=== PATIENT | female | born 1970 | race Caucasian/White ===

== ENCOUNTER 2016-11-06 07:08 | Day surgery (SDC) | payer BC ==
[2016-11-04 09:08] VITALS: BMI 34.7
[~2016-11-06 07:08] MED LIST: LACTATED RINGERS 1,000 ML IV SCH
[2016-11-06 07:59] VITALS: RESP 18; TEMP 97.6
[2016-11-06] MEDS ORDERED: LIDOCAINE 1% INJ 10MG/ML (20 ML MDV) ONE (08:22)
[2016-11-06] MEDS ORDERED: PROPOFOL 10 MG/ML 20 ML VIAL IV ONE (08:22)
--- NOTE | 2016-11-06 08:33 | P.PCN ---
Date of Procedure: 11/06/16 Procedure(s) Performed: BRIEF HISTORY: Patient is a 46-year-old, pleasant, white female, scheduled for an upper endoscopy as part of evaluation of long-standing history of gastroesophageal reflux symptoms of almost 13 years duration. She has been on Prilosec 20 mg daily for the last 1 year and feeling much better. Occasionally has breakthrough heartburn nocturnally. She is scheduled for an upper endoscopy to rule out compensated reflux disease. PROCEDURE PERFORMED: Esophagogastroduodenoscopy with biopsy. PREOPERATIVE DIAGNOSIS: Long-standing history of GERD. IV sedation per anesthesia. PROCEDURE: After informed consent was obtained, the patient was brought into the endoscopy unit. IV conscious sedation was administered by Anesthesia under continuous monitoring. Initially the Olympus GIF-140 video endoscope was inserted into the mouth. Esophagus intubated without any difficulty. It was gradually advanced into the stomach and duodenum and carefully examined. The bulb and the second part of the duodenum appeared normal. The scope at this time was withdrawn to the stomach, adequately insufflated with air, and upon careful examination, mucosa of the antrum, appeared normal. In the body the stomach there are multiple small gastric polyps noted which were biopsied. The body, cardia and the fundus appeared normal. The scope was then withdrawn into the esophagus. The GE junction was located at 39 cm from the incisors. Small hiatal hernia noted. The esophagus appeared normal. There were no erosions or ulcerations seen. There was a small 2-3 mm polyp at the GE junction which was biopsied and the patient tolerated the procedure well. IMPRESSION: 1. Small hiatal hernia but no evidence of esophagitis or Esparza's esophagus. 2. 2-3 mm GE junction polyp status post biopsy. 3. Multiple small gastric polyps RECOMMENDATIONS: The findings of this examination were discussed with the patient as well as a family. She was advised to follow with the biopsy results. She can continue with omeprazole 20 mg daily half hour before dinnertime and follow antireflux measures.
[2016-11-06 08:54] VITALS: BP 123/65; PULSE 77
--- NOTE | 2016-11-14 09:46 | CDI ---
Dr. Vidhi Gary, Due to new rules about charging for conscious sedation, we noted conflicting information about type of sedation between your procedure note (stating IV CONSCIOUS sedation under Procedure heading) and Anesthesia Record which states Unconscious sedation. Because the word CONSCIOUS now has a different meaning for billing, we need you to stop dictating conscious sedation when Anesthesia is involved on your cases. FOR THIS CASE, WE NEED YOU TO DO ADDENDUM TO YOUR PROCED NOTE THAT SAYS "Unconscious" SEDATION instead of CONSCIOUS SEDATION. Thank you christine much for your assistance with this important billing compliance documentation issue. Sincerely, Ovidio Thrasher--associate professor of criminal justice Maria Dolores Sánchez MBA, FIELD MARKETING REPRESENTATIVE, [facility] Deputy Clerk, Kacey Porter [phone] [facility] SYSTEM[facility]
--- NOTE | 2016-12-25 11:56 | OP ---
ADDENDUM: DATE OF SERVICE: 11/06/2016 SURGEON: CHANO MANNING DO CELLULOID TRIMMER: PREOPERATIVE DIAGNOSIS: POSTOPERATIVE DIAGNOSIS: OPERATION: ANESTHESIA: ESTIMATED BLOOD LOSS: SPECIMENS REMOVED: COMPLICATIONS: OPERATIVE FINDINGS: DESCRIPTION OF PROCEDURE: General anesthesia was utilized instead of IV conscious sedation.
== END 2016-11-06 09:20 | disposition home or self-care (01) ==
LOC: ORWHC2ENDO 07:08
PROVIDERS: ATTEND Internal Medicine Gastroenterology
DX: K21.9 Gastro-esophageal reflux disease without esophagitis (principal); K31.7 Polyp of stomach and duodenum; K29.70 Gastritis, unspecified, without bleeding; K20.0 Eosinophilic esophagitis; K44.9 Diaphragmatic hernia without obstruction or gangrene; E07.9 Disorder of thyroid, unspecified; Z88.8 Allergy status to other drugs, medicaments and biological substances; Z79.3 Long term (current) use of hormonal contraceptives; Z79.899 Other long term (current) drug therapy
CPT/HCPCS: 81025; 88305; 88342; 43239; J2001; J2704

== ENCOUNTER → 2018-09-23 | Outpatient (CLI) | payer BC ==
--- NOTE | 2018-09-24 11:04 | MM ---
Reason for exam: screening (asymptomatic). Last mammogram was performed 8 years and 10 months ago. History: Took hormonal contraceptives for 7 years beginning at age 21. Physical Findings: A clinical breast exam by your physician is recommended on an annual basis and results should be correlated with mammographic findings. MG 3D Screening Mammo W/Cad Bilateral CC and MLO view(s) were taken. Prior study comparison: September 19, 2016, mammogram, performed at [facility]. November 06, 2009, bilateral digital screening mammogram. The breast tissue is heterogeneously dense. This may lower the sensitivity of mammography. No significant changes when compared with prior studies. ASSESSMENT: Benign, BI-RAD 2 RECOMMENDATION: Routine screening mammogram of both breasts in 1 year.
== END | disposition home or self-care (01) ==
LOC: RADMAMWWP 16:31
PROVIDERS: ATTEND Family Medicine
DX: Z12.31 Encounter for screening mammogram for malignant neoplasm of breast (principal)
CPT/HCPCS: 77063; 77067

== ENCOUNTER → 2022-01-23 | Outpatient (CLI) | payer BC ==
--- NOTE | 2022-01-24 18:28 | MM ---
Reason for Exam: Screening (asymptomatic). Last mammogram was performed 3 year(s) and 4 month(s) ago. Patient History: Menarche at age 14. First Full-Term at age 31. Late child-bearing (after 31). Hormonal Contraceptives for 7 years from age 21 until age 28. Risk Values: Jana 5 year model risk: 1.3%. NCI Lifetime model risk: 12.1%. Prior Study Comparison: 11/06/2009 Bilateral Screening Mammogram, [facility]. 09/19/2016 Screening Mammogram, [facility]. 09/23/2018 Bilateral Screening Mammogram, [facility]. Tissue Density: The breast tissue is extremely dense which could obscure a lesion on mammography. Findings: Analyzed By CAD. Pattern is asymmetric but stable over the interval. Right breast appears larger than the left. No suspicious groups of microcalcifications, spiculated or lobular masses, architectural distortion or other secondary signs of malignancy are mammographically apparent. Overall Assessment: Benign, BI-RAD 2 Management: Screening Mammogram of both breasts in 1 year. A negative mammogram report should not preclude additional follow up of suspicious palpable abnormalities. Patient should continue monthly self breast exam. A clinical breast exam by your physician is recommended on an annual basis and results should be correlated with mammographic findings. Electronically signed and approved by: Tadeo Gore D.O. Radiologis
== END | disposition home or self-care (01) ==
LOC: RADMAMWWP 08:07
PROVIDERS: ATTEND Family Medicine
DX: Z12.31 Encounter for screening mammogram for malignant neoplasm of breast (principal)
CPT/HCPCS: 77063; 77067

== ENCOUNTER 2022-02-27 06:34 | Day surgery (SDC) | payer BC ==
[2022-02-25 11:51] VITALS: BMI 39.1
[2022-02-27 07:25] VITALS: RESP 16; TEMP 98.6
[2022-02-27] MEDS ORDERED: PROPOFOL 10 MG/ML 20 ML VIAL IV ONE (07:50)
[2022-02-27] MEDS ORDERED: LIDOCAINE 2% INJ 20 MG/ML (2 ML VIAL) ONE (07:50)
--- NOTE | 2022-02-27 08:15 | P.PCN ---
Date of Procedure: 02/27/22 Procedure(s) Performed: Brief history: Patient is a pleasant 51-year-old white female scheduled for an elective upper endoscopy as well as colonoscopy as a part of evaluation of long-standing history of GERD and the for colon cancer Procedure performed: Esophagogastroduodenoscopy with biopsy Colonoscopy Preoperative diagnosis: Long-standing history of GERD Screening for colon cancer Anesthesia: MAC Procedure: After informed consent was obtained from the patient was brought into the endoscopy unit and IV sedation was administered by anesthesia under continuous monitoring. Initially upper endoscopy was done. The Olympus GF 160 video endoscope was inserted inserted into the mouth and esophagus intubated without any difficulty and was gradually advanced into the stomach and duodenum and carefully examined. The bulb and second part of the duodenum appeared normal. The scope was then withdrawn into the stomach adequately insufflated with air and upon careful examination the antrum had diffuse gastritis and biopsies were done from this area. The body, cardia and fundus appeared normal. the multiple gastric polyps noted in the proximal body the stomach and biopsies were done from this area. Moderate sessile hernia noted The scope was then withdrawn into the esophagus. The GE junction was located at 35 cm to the incisors. It appeared regular with no erythema erosions or ulcerations. Rest of the esophagus appeared normal. Patient tolerated the procedure well. At this time the patient continued to remain sedation. Initial digital rectal examination was normal. Olympus CF 160 video colonoscope was then inserted into the rectum and gradually advanced to the cecum without any difficulty. Careful examination was performed as the scope was gradually being withdrawn. The prep was excellent. The cecum, ascending colon, transverse colon, descending colon, sigmoid colon and rectum appeared normal. Retroflexion was performed in the rectum and no lesions were noted. Patient tolerated the procedure well. Impression: 1. Upper endoscopy revealed diffuse antral gastritis, moderate size hiatal hernia and multiple gastric polyps status post biopsy 2. Colonoscopy was within normal limits with no evidence of colorectal neoplasia Recommendations: Findings of this examination were discussed with the patient as well as a family. She was advised to follow with the biopsy results. Continue omeprazole 20 mg daily and follow antireflux measures. Recommend repeat screening colonoscopy in 10 years.
[2022-02-27 08:36] VITALS: BP 119/77; PULSE 68
== END 2022-02-27 08:59 | disposition home or self-care (01) ==
LOC: ORWHC2ENDO 06:34
PROVIDERS: ATTEND Internal Medicine Gastroenterology
DX: Z12.11 Encounter for screening for malignant neoplasm of colon (principal); K29.50 Unspecified chronic gastritis without bleeding; K31.7 Polyp of stomach and duodenum; K44.9 Diaphragmatic hernia without obstruction or gangrene; K21.9 Gastro-esophageal reflux disease without esophagitis; J45.909 Unspecified asthma, uncomplicated; E07.9 Disorder of thyroid, unspecified; Z91.09 Other allergy status, other than to drugs and biological substances; Z79.890 Hormone replacement therapy; Z79.899 Other long term (current) drug therapy
CPT/HCPCS: 81025; 88305; 45378; 43239; J2704; J2001

== ENCOUNTER 2022-08-08 23:54 | Observation (INO) | payer BC ==
[2022-08-09] MEDS ORDERED: KETOROLAC 15 MG/ML 1 ML VIAL IVP STA (00:14)
[2022-08-09] MEDS ORDERED: SODIUM CHLORIDE 0.9% 1,000 ML IV STA (00:14)
[2022-08-09] MEDS ORDERED: ONDANSETRON 4 MG/2 ML VIAL IVP STA (00:14)
[2022-08-09] MEDS ORDERED: MORPHINE SULFATE 4 MG/ML SYRINGE IVP STA (00:15)
--- NOTE | 2022-08-09 00:16 | ED ---
Abdominal Pain HPI - General Chief Complaint: Abdominal Pain Stated Complaint: Abd Pain Time Seen by Provider: 08/09/22 00:14 Source: family, RN notes reviewed, old records reviewed Mode of arrival: wheelchair Limitations: no limitations - History of Present Illness Initial Comments: This is a 52-year-old female to the emergency department for evaluation patient Dese for evaluation regards to significant pain. Abdominal pain epigastric bowel pain patient does believe this is gallbladder related. No fevers. No travel show sick contacts no other severe complaints MD Complaint: abdominal pain (RUQ,epigastric) -: days(s) Location: diffuse, RUQ, epigastric Radiation: RUQ Migration to: RUQ Severity: moderate Severity scale (1-10): 4 Quality: stabbing, aching Consistency: intermittent, colicky Improves With: nothing Worsens With: nothing Associated Symptoms: nausea, vomiting Treatments Prior to Arrival: other (0) - Related Data Home Medications Medication Instructions Recorded Confirmed Levothyroxine Sodium [Synthroid] 88 mcg PO QAM 08/07/16 02/27/22 Omeprazole [PriLOSEC] 40 mg PO HS 02/25/22 02/27/22 Allergies Allergy/AdvReac Type Severity Reaction Status Date / Time aloe Allergy Rash/Hives Verified 08/09/22 00:00 Review of Systems ROS Statement: Those systems with pertinent positive or pertinent negative responses have been documented in the HPI. ROS Other: All systems not noted in ROS Statement are negative. Past Medical History Past Medical History: Asthma, GERD/Reflux, Skin Disorder, Thyroid Disorder Additional Past Medical History / Comment(s): Jose. Patient states diagnosed with Asthma in 1998, but has had no problems with it and thinks it's just allergies not Asthma. History of Any Multi-Drug Resistant Organisms: None Reported Past Surgical History: Orthopedic Surgery Additional Past Surgical History / Comment(s): Right hand procedure. Past Anesthesia/Blood Transfusion Reactions: No Reported Reaction Additional Past Anesthesia/Blood Transfusion Reaction / Comment(s): No hx blood transfusion. Past Psychological History: No Psychological Hx Reported Smoking Status: Never smoker Past Alcohol Use History: None Reported Past Drug Use History: None Reported - Past Family History Mother Family Medical History: No Reported History Father Family Medical History: No Reported History General Exam Limitations: no limitations General appearance: alert, in no apparent distress Head exam: Present: atraumatic, normocephalic, normal inspection Eye exam: Present: normal appearance, PERRL, EOMI. Absent: scleral icterus, conjunctival injection, periorbital swelling ENT exam: Present: normal exam, mucous membranes moist Neck exam: Present: normal inspection. Absent: tenderness, meningismus, lymphadenopathy Respiratory exam: Present: normal lung sounds bilaterally. Absent: respiratory distress, wheezes, rales, rhonchi, stridor Cardiovascular Exam: Present: regular rate, normal rhythm, normal heart sounds. Absent: systolic murmur, diastolic murmur, rubs, gallop, clicks GI/Abdominal exam: Present: soft, distended, tenderness, guarding (RUQ), normal bowel sounds. Absent: rebound, rigid Extremities exam: Present: normal inspection, full ROM, normal capillary refill. Absent: tenderness, pedal edema, joint swelling, calf tenderness Back exam: Present: normal inspection Neurological exam: Present: alert, oriented X3, CN II-XII intact Psychiatric exam: Present: normal affect, normal mood Skin exam: Present: warm, dry, intact, normal color. Absent: rash Course Vital Signs 08/08/22 23:58 Temperature 97.3 F L Pulse Rate 100 Respiratory 20 Rate Blood Pressure 138/99 O2 Sat by Pulse 100 Oximetry - Reevaluation(s) Reevaluation #1: 08/09/22 01:36 Medical record is reviewed Reevaluation #2: 08/09/22 01:36 patient symptoms are mildly improved, still w pain Reevaluation #3: 08/09/22 01:36 patient informed of results and questions answered - Consultations Consultation #1: spoke w Dr Víctor holguin for admission Medical Decision Making - Medical Decision Making 52 female to the emergency department for evaluation of abdominal pain. Patient here for epigastric right upper quadrant bowel pain positive colicystitis patient be admitted for surgical evaluation management - Lab Data Result diagrams: 08/09/22 00:14 08/09/22 00:14 Lab Results 08/09/22 08/09/22 Range/Units 00:14 00:14 WBC 15.9 H (3.8-10.6) k/uL RBC 4.24 (3.80-5.40) m/uL Hgb 12.6 (11.4-16.0) gm/dL Hct 37.7 (34.0-46.0) % MCV 88.9 (80.0-100.0) fL MCH 29.7 (25.0-35.0) pg MCHC 33.4 (31.0-37.0) g/dL RDW 13.9 (11.5-15.5) % Plt Count 391 (150-450) k/uL MPV 8.6 Neutrophils % 82 % Lymphocytes % 11 % Monocytes % 5 % Eosinophils % 0 % Basophils % 0 % Neutrophils # 13.0 H (1.3-7.7) k/uL Lymphocytes # 1.8 (1.0-4.8) k/uL Monocytes # 0.8 (0-1.0) k/uL Eosinophils # 0.0 (0-0.7) k/uL Basophils # 0.1 (0-0.2) k/uL Sodium 136 L (137-145) mmol/L Potassium 3.6 (3.5-5.1) mmol/L Chloride 100 (98-107) mmol/L Carbon Dioxide 24 (22-30) mmol/L Anion Gap 12 mmol/L BUN 12 (7-17) mg/dL Creatinine 1.25 H (0.52-1.04) mg/dL Est GFR (CKD-EPI)AfAm 58 (>60 ml/min/1.73 sqM) Est GFR (CKD-EPI)NonAf 50 (>60 ml/min/1.73 sqM) Glucose 181 H (74-99) mg/dL Calcium 8.9 (8.4-10.2) mg/dL Total Bilirubin 2.3 H (0.2-1.3) mg/dL AST 31 (14-36) U/L ALT 13 (4-34) U/L Alkaline Phosphatase 134 H (38-126) U/L Total Protein 7.6 (6.3-8.2) g/dL Albumin 4.1 (3.5-5.0) g/dL Amylase 39 (30-110) U/L Lipase 45 (23-300) U/L - Radiology Data Radiology results: report reviewed (US of GB Is Positive for Acute Cholecystitis), image reviewed Disposition Clinical Impression: Abdominal pain, Acute cholecystitis Disposition: ADMITTED IP TO THIS HOSP Condition: Good Is patient prescribed a controlled substance at d/c from ED?: No Referrals: Marion Haley DO [Primary Care Provider] - 1-2 days Time of Disposition: 01:35
[2022-08-09 00:51] LABS: Albumin 4.1 g/dL (3.5-5.0); Calcium 8.9 mg/dL (8.4-10.2); Potassium 3.6 mmol/L (3.5-5.1); Total Bilirubin 2.3 mg/dL (0.2-1.3); Total Protein 7.6 g/dL (6.3-8.2)
--- NOTE | 2022-08-09 00:56 | US ---
EXAMINATION TYPE: US gallbladder DATE OF EXAM: 08/09/2022 COMPARISON: NONE CLINICAL HISTORY: GB. Severe RUQ pain with n/v. TECHNIQUE: Multiple sonographic images of the right upper quadrant are obtained. FINDINGS: EXAM MEASUREMENTS: Liver Length: 15.9 cm Gallbladder Wall: 0.8 cm CBD: 0.6 cm Right Kidney: 9.6 x 4.7 x 4.6 cm Pancreas: Obscured by bowel gas Liver: Cystic area seen in the right lobe of liver measuring 6.9 x 8.3 x 3.8cm Gallbladder: Gallstones visualized. GB wall thickened with pericholecystic fluid. Evidence for sonographic Sanchez's sign: Yes CBD: Not well visualized Right Kidney: wnl IMPRESSION: 1. Findings consistent with acute cholecystitis. 2. Cholelithiasis. 3. Right hepatic lobe cyst.
[2022-08-09 01:11] LABS: Basophils # (A) 0.1 k/uL (0-0.2); Basophils % (A) 0 %; Eosinophils % (A) 0 %; HCT 37.7 % (34.0-46.0); HGB 12.6 gm/dL (11.4-16.0); Lymphocytes # (A) 1.8 k/uL (1.0-4.8); Lymphocytes % (A) 11 %; MCH 29.7 pg (25.0-35.0); MCHC 33.4 g/dL (31.0-37.0); MCV 88.9 fL (80.0-100.0); Mean Platelet Volume 8.6; Monocytes # (A) 0.8 k/uL (0-1.0); Monocytes % (A) 5 %; Neutrophils % (A) 82 %; Platelet Count 391 k/uL (150-450); RBC 4.24 m/uL (3.80-5.40); RDW 13.9 % (11.5-15.5); WBC 15.9 k/uL (3.8-10.6)
[2022-08-09] MEDS ORDERED: AMPICILLIN-SULBACTAM 3 GM in SODIUM CHLORIDE 0.9% 100 ML IVPB STA (01:29)
[2022-08-09] MEDS ORDERED: ONDANSETRON 4 MG/2 ML VIAL IVP PRN (01:34)
[2022-08-09] MEDS ORDERED: NALOXONE 0.4 MG/ML 1 ML VIAL IV PRN ×2 (01:34→12:35)
[2022-08-09 01:54] LABS: Partial Thromboplastin Time 27.7 sec (22.0-30.0); Prothrombin Time 10.3 sec (9.0-12.0)
[2022-08-09] MEDS: HYDROmorphone 1 MG/ML 1 ML SYRINGE IVP PRN ×2 (02:12→07:57)
[2022-08-09] MEDS: SODIUM CHLORIDE 0.9% 1,000 ML IV SCH ×3 (02:15→18:00)
--- NOTE | 2022-08-09 08:50 | P.GSHP ---
History of Present Illness H&P Date: 08/09/22 Chief Complaint: Right upper quadrant pain A 52-year-old female who's had history of right quadrant pain. Patient's workup in the emergency room found evidence of acute cholecystitis and cholelithiasis. Past Medical History Past Medical History: Asthma, GERD/Reflux, Skin Disorder, Thyroid Disorder Additional Past Medical History / Comment(s): Jose. Patient states diagnosed with Asthma in 1998, but has had no problems with it and thinks it's just allergies not Asthma. History of Any Multi-Drug Resistant Organisms: None Reported Past Surgical History: Orthopedic Surgery Additional Past Surgical History / Comment(s): Right hand procedure. Past Anesthesia/Blood Transfusion Reactions: No Reported Reaction Additional Past Anesthesia/Blood Transfusion Reaction / Comment(s): No hx blood transfusion. Past Psychological History: No Psychological Hx Reported Smoking Status: Never smoker Past Alcohol Use History: None Reported Past Drug Use History: None Reported - Past Family History Mother Family Medical History: No Reported History Father Family Medical History: No Reported History Medications and Allergies Home Medications Medication Instructions Recorded Confirmed Type Levothyroxine Sodium [Synthroid] 88 mcg PO QAM 08/07/16 08/09/22 History Omeprazole [PriLOSEC] 40 mg PO HS 02/25/22 08/09/22 History Ibuprofen [Motrin] 400 mg PO DAILY PRN 08/09/22 08/09/22 History Allergies Allergy/AdvReac Type Severity Reaction Status Date / Time aloe Allergy Rash/Hives Verified 08/09/22 07:51 Surgical - Exam Vital Signs Temp Pulse Resp BP Pulse Ox 97.3 F L 100 20 138/99 100 08/08/22 23:58 08/08/22 23:58 08/08/22 23:58 08/08/22 23:58 08/08/22 23:58 - General well developed, well nourished, no distress - Eyes PERRL - ENT normal pinna - Neck no masses - Respiratory normal expansion - Cardiovascular Rhythm: regular - Abdomen Tender right upper quadrant Abdomen: soft Results - Labs 08/09/22 00:14 08/09/22 00:14 Abnormal Lab Results - Last 24 Hours (Table) 08/09/22 08/09/22 Range/Units 00:14 00:14 WBC 15.9 H (3.8-10.6) k/uL Neutrophils # 13.0 H (1.3-7.7) k/uL Sodium 136 L (137-145) mmol/L Creatinine 1.25 H (0.52-1.04) mg/dL Glucose 181 H (74-99) mg/dL Total Bilirubin 2.3 H (0.2-1.3) mg/dL Alkaline Phosphatase 134 H (38-126) U/L Diabetes panel 08/09/22 Range/Units 00:14 Sodium 136 L (137-145) mmol/L Potassium 3.6 (3.5-5.1) mmol/L Chloride 100 (98-107) mmol/L Carbon Dioxide 24 (22-30) mmol/L BUN 12 (7-17) mg/dL Creatinine 1.25 H (0.52-1.04) mg/dL Glucose 181 H (74-99) mg/dL Calcium 8.9 (8.4-10.2) mg/dL AST 31 (14-36) U/L ALT 13 (4-34) U/L Alkaline Phosphatase 134 H (38-126) U/L Total Protein 7.6 (6.3-8.2) g/dL Albumin 4.1 (3.5-5.0) g/dL Calcium panel 08/09/22 Range/Units 00:14 Calcium 8.9 (8.4-10.2) mg/dL Albumin 4.1 (3.5-5.0) g/dL Pituitary panel 08/09/22 Range/Units 00:14 Sodium 136 L (137-145) mmol/L Potassium 3.6 (3.5-5.1) mmol/L Chloride 100 (98-107) mmol/L Carbon Dioxide 24 (22-30) mmol/L BUN 12 (7-17) mg/dL Creatinine 1.25 H (0.52-1.04) mg/dL Glucose 181 H (74-99) mg/dL Calcium 8.9 (8.4-10.2) mg/dL Adrenal panel 08/09/22 Range/Units 00:14 Sodium 136 L (137-145) mmol/L Potassium 3.6 (3.5-5.1) mmol/L Chloride 100 (98-107) mmol/L Carbon Dioxide 24 (22-30) mmol/L BUN 12 (7-17) mg/dL Creatinine 1.25 H (0.52-1.04) mg/dL Glucose 181 H (74-99) mg/dL Calcium 8.9 (8.4-10.2) mg/dL Total Bilirubin 2.3 H (0.2-1.3) mg/dL AST 31 (14-36) U/L ALT 13 (4-34) U/L Alkaline Phosphatase 134 H (38-126) U/L Total Protein 7.6 (6.3-8.2) g/dL Albumin 4.1 (3.5-5.0) g/dL Assessment and Plan Assessment: Right upper quadrant pain Acute cholecystitis We'll perform laparoscopic cholecystectomy
[2022-08-09] MEDS ORDERED: AMPICILLIN-SULBACTAM 3 GM in SODIUM CHLORIDE 0.9% 100 ML IVPB SCH (10:00)
[2022-08-09] MEDS ORDERED: LACTATED RINGERS 1,000 ML IV ONE ×2 (11:03→12:35)
[2022-08-09] MEDS ORDERED: HEPARIN SODIUM,PORCINE/PF 5,000 UNIT/0.5 ML SYRINGE SQ ONE (11:08)
[2022-08-09] MEDS ORDERED: HEPARIN SODIUM,PORCINE 5,000 UNIT/ML 1 ML VIAL SQ ONE (11:09)
[2022-08-09] MEDS ORDERED: ONDANSETRON 4 MG/2 ML VIAL IVP ONE (11:18)
[2022-08-09] MEDS ORDERED: DEXAMETHASONE SOD PHOSPHATE 4 MG/ML 1 ML VIAL IVP ONE (11:18)
[2022-08-09] MEDS ORDERED: PROPOFOL 10 MG/ML 20 ML VIAL IV ONE (11:24)
[2022-08-09] MEDS ORDERED: fentaNYL (PF) 50 MCG/ML 2 ML AMP ONE (11:24)
[2022-08-09] MEDS ORDERED: GLYCOPYRROLATE 0.2 MG/ML 2 ML VIAL ONE (11:24)
[2022-08-09] MEDS ORDERED: LIDOCAINE 2% INJ 20 MG/ML (2 ML VIAL) ONE (11:24)
[2022-08-09] MEDS ORDERED: MIDAZOLAM 2 MG/2 ML VIAL ONE (11:24)
[2022-08-09] MEDS ORDERED: ROCURONIUM 10 MG/ML (5 ML VIAL) IV ONE (11:24)
[2022-08-09] MEDS ORDERED: SUCCINYLCHOLINE CHLORIDE 200 MG/10 ML VIAL IV ONE (11:24)
[2022-08-09] MEDS ORDERED: NEOSTIGMINE 1 MG/ML 10 ML VIAL ONE (11:24)
[2022-08-09] MEDS ORDERED: BUPIVACAIN-EPI 0.25%-1:200,000 30 ML VIAL SQ ONE ×2 (11:25→11:38)
[2022-08-09] MEDS ORDERED: ACETAMINOPHEN TAB 325 MG TAB PO PRN (12:35)
[2022-08-09] MEDS ORDERED: HYDROcodone/APAP 5-325MG 1 EACH TAB PO PRN ×2 (12:35)
--- NOTE | 2022-08-09 12:35 | P.OP ---
Date of Procedure: 08/09/22 Preoperative Diagnosis: Cholecystitis Postoperative Diagnosis: Gangrenous cholecystitis Liver abscess Empyema gallbladder Cholelithiasis Procedure(s) Performed: Laparoscopic cholecystectomy Anesthesia: THERESE Surgeon: Samir Renee Estimated Blood Loss (ml): 200 Pathology: other Condition: stable Disposition: PACU Indications for Procedure: This is a 52-year-old female who's had a chronic history of right upper quadrant pain. Patient was seen ardha El evidence of cholelithiasis and was thought to be a 8 cm liver cyst. Operative Findings: Liver abscess Cholelithiasis Gangrenous cholecystitis Description of Procedure: The patient was placed on the operating table. The patient received a general endotracheal tube anesthesia. The patients abdomen was prepped and draped in the usual sterile fashion. Through an infraumbilical stab incision, the fascia of the anterior abdominal wall was grasped with a pair of Kochers and then the Veress needle was placed in the peritoneal cavity. Position of the Veress needle was confirmed with positive drop test. The abdomen was then insufflated. After adequate insufflation, the 10 mm trocar was placed in the peritoneal cavity. Following this the laparoscope was placed in the peritoneal cavity. The patient was placed in the head-up, right side up position and then a 5 mm trocar was placed in the right lateral and right subcostal position under direct visualization. A 8 mm trocar was placed in the epigastric position. There was a liver abscess seen on the right lobe liver just above the gallbladder dome. This was aspirated. It was located just below the capsule of the liver. The gallbladder was quite thickened. The gallbladder appeared to have patchy necrosis. The gallbladder wall was very thick. The gallbladder was aspirated prior to being grasped. The gallbladder was grasped in the fundus and infundibulum. Traction on the gallbladder was placed in the lateral and the cephalad positions. The triangle of Calot was visualized.. The cystic duct was bluntly dissected until the union of the cystic duct and common bile duct was seen. A critical view of safety was achieved. The cystic duct was then divided and sealed with the Harmonic scissors. A PDS Endoloop was then placed throughout the cystic duct stump. The cystic artery divided and sealed with the Harmonic scissors. The gallbladder was then removed from the liver bed using Harmonic scissors. The gallbladder was then extracted through the epigastric port site. Operative field was checked for any bleeding spots and Harmonic scissors was used to coagulate the liver bed. The abdomen was irrigated. A VISHNU drain was placed in the gallbladder fossa and brought out through a right lateral trocar site. The trocars were removed. The skin was closed using interrupted 3-0 Vicryl suture. Dermabond dressing were applied. The patient tolerated the procedure well.
[2022-08-09] MEDS ORDERED: HYDROmorphone 0.5 MG/0.5 ML SYRINGE IVP ONE ×3 (12:47→13:10)
[2022-08-09] MEDS: PANTOPRAZOLE 40 MG/10 ML VIAL IVP SCH ×2 (18:00→19:47)
[2022-08-09] MEDS: PIPERACILLIN-TAZOBACTAM 3.375 GM in SODIUM CHLORIDE 0.9% 100 ML IVPB SCH ×2 (18:00→23:58)
--- NOTE | 2022-08-10 02:18 | CONS ---
CONSULTATION REASON FOR CONSULTATION: Advice regarding asthma, GERD, other medical issues, requested by surgery. HISTORY OF PRESENT ILLNESS: This 52-year-old woman with past medical history of asthma, GERD, and other medical issues, follow up with Dr. Schultz, Pulmonary in the outpatient setting, underwent laparoscopic cholecystectomy for gangrenous cholecystitis, empyema gallbladder by Dr. Renee. There is no history of any fever or rigors. No history of any headache, loss of consciousness, or seizures. PAST MEDICAL HISTORY: Reviewed include asthma, GERD, rest of the history and rest of the chart is also reviewed. HOME MEDICATIONS: Reviewed, Motrin, dose and rest of medications reviewed. ALLERGIES: Aloe. FAMILY HISTORY: No history of heart disease or strokes in the family. SOCIAL HISTORY: No history of smoking or alcohol. REVIEW OF SYSTEMS: A 14-point review is negative except as mentioned earlier. PHYSICAL EXAMINATION: VITAL SIGNS: Pulse is 73, blood pressure 128/53, respirations 16. HEENT: Conjunctivae normal. NECK: No jugular venous distention. CARDIOVASCULAR: S1, S2 muffled. RESPIRATIONS: Diminished at the bases. ABDOMEN: Soft status post surgery. LEGS: No edema, no swelling. NERVOUS SYSTEM: Nonfocal. LABS: WBC 16.9, sodium 136. Rest of the labs noted. ASSESSMENT: 1. Status post laparoscopic cholecystectomy for gangrenous cholecystitis. 2. Increased WBC. 3. History of asthma. 4. History of gastroesophageal reflux disease. RECOMMENDATIONS: This 52-year-old woman presented after surgery. At this time, I recommend to continue current medications, continue symptomatic treatment. I would also recommend a course of broad-spectrum antibiotics. Repeat labs. Closely follow with surgery, DVT prophylaxis. Incentive spirometry. Proton pump inhibitors. Further recommendations to follow. See orders for details. MMODL / IJN: [id number] /
[2022-08-10] MEDS: HYDROmorphone 0.5 MG/0.5 ML SYRINGE IVP PRN ×3 (03:53→21:07)
[2022-08-10] MEDS: LEVOTHYROXINE 88 MCG TAB PO SCH (05:25)
[2022-08-10] MEDS: PIPERACILLIN-TAZOBACTAM 3.375 GM in SODIUM CHLORIDE 0.9% 100 ML IVPB SCH ×2 (08:42→15:32)
[2022-08-10] MEDS: PANTOPRAZOLE 40 MG/10 ML VIAL IVP SCH ×2 (08:42→20:01)
[2022-08-10] MEDS: ENOXAPARIN 40 MG/0.4 ML SYRINGE SQ SCH (08:42)
[2022-08-10 10:50] LABS: Basophils # (A) 0.01 X 10*3/uL (0.00-0.10); Basophils % (A) 0.1 %; Eosinophils # (A) 0 X 10*3/uL (0.04-0.35); Eosinophils % (A) 0 %; HCT 28.7 % (37.2-46.3); HGB 8.7 g/dL (12.0-15.0); Immature Grans, Automated 0.5 %; Lymphocytes # (A) 1.01 X 10*3/uL (0.90-5.00); Lymphocytes % (A) 7.6 %; MCH 28.2 pg (27.0-32.0); MCHC 30.3 g/dL (32.0-37.0); MCV 93.2 fL (80.0-97.0); Monocytes # (A) 0.88 X 10*3/uL (0.20-1.00); Monocytes % (A) 6.6 %; NRBC Per 100 WBC 0 /100 WBCS (0.0-0.0); Neutrophils # (A) 11.31 X 10*3/uL (1.80-7.70); Neutrophils % (A) 85.2 %; Platelet Count 252 X 10*3/uL (140-440); RBC 3.08 X 10*6/uL (4.10-5.20); RDW 13.9 % (11.5-14.5); WBC 13.27 X 10*3/uL (4.50-10.00)
[2022-08-10 11:36] LABS: African American GFR (CKD) 66.6 (60.0-200.0); Albumin 3.1 g/dL (3.8-4.9); Albumin/Globulin Ratio 1.23 (1.60-3.17); Anion Gap 10.1 mmol/L (10.00-18.00); BUN/Creat Ratio 9.64 Ratio (12.00-20.00); Blood Urea Nitrogen 10.7 mg/dL (9.0-27.0); Calcium 8.1 mg/dL (8.7-10.3); Carbon Dioxide 25.3 mmol/L (20.0-27.5); Globulin 2.6 g/dL (1.6-3.3); Non-African American GFR(CKD) 57.5 (60.0-200.0); Total Bilirubin 0.9 mg/dL (0.30-1.20); Total Protein 5.7 g/dL (6.2-8.2)
[2022-08-10] MEDS: SODIUM CHLORIDE 0.9% 1,000 ML IV SCH (12:13)
--- NOTE | 2022-08-10 12:58 | P.PN ---
Progress Note - Text Progress Note Date: 08/10/22 Patient still has complaints of right upper quadrant pain. She is status post laparoscopic ostectomy for acute gangrenous cholecystitis with liver abscess. She's had some serous sanguinous drainage from her VISHNU drain. There is no evidence of bile the VISHNU drain. On exam vital signs are stable. Abdomen soft. Incision sites are clean dry intact. Significant cholecystitis with liver abscess. Patient will continue receive IV antibiotics.
--- NOTE | 2022-08-10 22:29 | P.CONS ---
History of Present Illness - Reason for Consult Consult date: 08/10/22 Liver abscess Requesting physician: Samir Renee - Chief Complaint Abdominal pain x 6 days - History of Present Illness Patient is a 52 year female with a past medical history significant for asthma reflux hyperthyroidism presenting to the hospital yesterday for evaluation of abdominal pain mostly to the right upper quadrant area that has been going on since last Friday patient mentioned her symptoms did improve on last Friday however those days symptom got worse the pain to the right upper quadrant area becomes more severe sharp almost 10 out of 10 with no radiation with associated nausea but no vomiting denies having any diarrhea or constipation with these symptoms the patient presented to the ER yesterday with the patient was evaluated patient did have ultrasound of the gallbladder suspicious for acute cholecystitis , the patient was afebrile however the patient did have elevated white count with a left shift , the patient kidney function was normal , bilirubin was mildly elevated however liver enzymes are normal , patient was taken to the OR she was noticed to have gangrenous cholecystitis/empyema of the gallbladder and also liver abscess in this patient who is status post laparoscopic ostectomy and drainage of the liver abscess patient has been treated with Zosyn and infectious disease was consulted today for further management of antibiotic therapy, patient currently denies having any fever or chills patient right upper quadrant pain has decreased in intensity patient denies having any nausea no vomiting no chest pain or shortness of breath and no diarrhea Review of Systems Positive point has been mentioned in the HPI rest of the systems are negative Past Medical History Past Medical History: Asthma, GERD/Reflux, Skin Disorder, Thyroid Disorder Additional Past Medical History / Comment(s): Jose. Patient states diagnosed with Asthma in 1998, but has had no problems with it and thinks it's just allergies not Asthma. History of Any Multi-Drug Resistant Organisms: None Reported Past Surgical History: Orthopedic Surgery Additional Past Surgical History / Comment(s): Right hand procedure. Past Anesthesia/Blood Transfusion Reactions: No Reported Reaction Additional Past Anesthesia/Blood Transfusion Reaction / Comm: No hx blood transfusion. Past Psychological History: No Psychological Hx Reported Smoking Status: Never smoker Past Alcohol Use History: None Reported Past Drug Use History: None Reported - Past Family History Mother Family Medical History: No Reported History Father Family Medical History: No Reported History Medications and Allergies Home Medications Medication Instructions Recorded Confirmed Type Levothyroxine Sodium [Synthroid] 88 mcg PO QAM 08/07/16 08/09/22 History Omeprazole [PriLOSEC] 40 mg PO HS 02/25/22 08/09/22 History Ibuprofen [Motrin] 400 mg PO DAILY PRN 08/09/22 08/09/22 History Acetaminophen Tab [Tylenol] 650 mg PO Q6H #30 tab 08/12/22 Rx Amoxic-Pot Clav 875-125Mg 1 tab PO BID 14 Days #28 tab 08/12/22 Rx [Augmentin 875-125] Docusate [Colace] 100 mg PO BID #20 capsule 08/12/22 Rx Ibuprofen [Motrin] 600 mg PO Q6HR PRN #40 tab 08/12/22 Rx oxyCODONE HCL [OxyIR] 5 mg PO Q6H PRN 3 Days #10 tab 08/12/22 Rx Allergies Allergy/AdvReac Type Severity Reaction Status Date / Time aloe Allergy Rash/Hives Verified 08/09/22 07:51 Physical Exam Vitals: Vital Signs Temp Pulse Resp BP BP Pulse Ox 08/10/22 08:42 18 08/10/22 08:30 96 08/10/22 07:00 98.2 F 81 18 104/69 96 08/10/22 02:45 77 20 08/10/22 00:30 98.0 F 91 18 104/64 92 L 08/09/22 21:10 77 20 08/09/22 19:24 97.4 F L 89 16 114/71 94 L 08/09/22 17:22 77 101/62 08/09/22 16:21 82 119/77 97 08/09/22 15:51 94 113/62 87 L 08/09/22 15:21 75 99/66 98 08/09/22 15:06 71 106/69 96 08/09/22 14:51 72 109/68 96 08/09/22 14:36 97.9 F 79 20 119/76 94 L 08/09/22 13:32 73 16 128/56 93 L 08/09/22 13:17 73 16 124/60 94 L 08/09/22 13:03 73 11 L 133/63 98 Intake and Output 08/09/22 08/10/22 08/10/22 22:59 06:59 14:59 Intake Total 240 Balance 240 Intake: Oral 240 Other: Voiding Method Toilet # Voids 1 2 1 # Bowel Movements 0 Weight 97.8 kg GENERAL DESCRIPTION: Middle-aged female lying in bed, no distress. No tachypnea or accessory muscle of respiration use. HEENT: Shows Pallor , no scleral icterus. Oral mucous membrane is dry. No pharyn geal erythema or thrush NECK: Trachea central, no thyromegaly. LUNGS: Unlabored breathing. Clear to auscultation anteriorly. No wheeze or crackle. HEART: S1, S2, regular rate and rhythm. No loud murmur ABDOMEN: Soft, mild right upper quadrant tenderness EXTREMITIES: No edema of feet. SKIN: No rash, no masses palpable. NEUROLOGICAL: The patient is awake, alert, oriented x3, mood and affect normal. Results CBC & Chem 7: 08/12/22 04:23 08/12/22 04:23 Labs: Abnormal Lab Results - Last 24 Hours (Table) 08/10/22 08/10/22 Range/Units 06:21 06:21 WBC 13.27 H (4.50-10.00) X 10*3/uL RBC 3.08 L (4.10-5.20) X 10*6/uL Hgb 8.7 L (12.0-15.0) g/dL Hct 28.7 L (37.2-46.3) % MCHC 30.3 L (32.0-37.0) g/dL Immature Gran # 0.06 H (0.00-0.04) X 10*3/uL Neutrophils # 11.31 H (1.80-7.70) X 10*3/uL Eosinophils # 0 L (0.04-0.35) X 10*3/uL Est GFR (CKD-EPI)NonAf 57.5 L (60.0-200.0) BUN/Creatinine Ratio 9.64 L (12.00-20.00) Ratio Glucose 131 H (70-110) mg/dL Calcium 8.1 L (8.7-10.3) mg/dL Total Protein 5.7 L (6.2-8.2) g/dL Albumin 3.1 L (3.8-4.9) g/dL Albumin/Globulin Ratio 1.23 L (1.60-3.17) g/dL Assessment and Plan (1) Acute cholecystitis Status: Acute Code(s): K81.0 - ACUTE CHOLECYSTITIS SNOMED Code(s): 89554947 (2) Liver abscess Status: Acute Code(s): K75.0 - ABSCESS OF LIVER SNOMED Code(s): 08318987 Plan: 1patient presented to hospital with acute right upper quadrant pain in this patient has been diagnosed with gangrenous cholecystitis/empyema of the gallbladder as well as liver abscess in this patient who is status post laparoscopic cholecystectomy and drainage of the liver abscess , will need to cover for enteric gram-negative both aerobes and anaerobes to the likely pathogen 2 patient to continue with the Zosyn 3.375 g every 8 hours 3will check inflammatory markers We will follow on clinical condition and cultures to further adjust medication if needed Thank you for this consultation will follow this patient with you Time with Patient: Greater than 30
[2022-08-11] MEDS: PIPERACILLIN-TAZOBACTAM 3.375 GM in SODIUM CHLORIDE 0.9% 100 ML IVPB SCH ×3 (01:32→16:21)
[2022-08-11] MEDS: SODIUM CHLORIDE 0.9% 1,000 ML IV SCH ×2 (05:11→23:45)
[2022-08-11] MEDS: LEVOTHYROXINE 88 MCG TAB PO SCH (05:12)
[2022-08-11] MEDS: HYDROmorphone 0.5 MG/0.5 ML SYRINGE IVP PRN ×3 (05:18→21:29)
[2022-08-11] MEDS: PANTOPRAZOLE 40 MG/10 ML VIAL IVP SCH ×2 (09:09→21:29)
[2022-08-11] MEDS: ENOXAPARIN 40 MG/0.4 ML SYRINGE SQ SCH (09:09)
[2022-08-11 11:40] LABS: Basophils # (A) 0.03 X 10*3/uL (0.00-0.10); Basophils % (A) 0.3 %; Eosinophils # (A) 0.08 X 10*3/uL (0.04-0.35); Eosinophils % (A) 0.8 %; HCT 26.1 % (37.2-46.3); HGB 8.1 g/dL (12.0-15.0); Immature Grans, Automated 0.3 %; Lymphocytes # (A) 2.47 X 10*3/uL (0.90-5.00); Lymphocytes % (A) 24.9 %; MCH 28.7 pg (27.0-32.0); MCV 92.6 fL (80.0-97.0); Mean Platelet Volume 9.7 fL (9.5-12.2); Monocytes # (A) 0.82 X 10*3/uL (0.20-1.00); Monocytes % (A) 8.3 %; NRBC Per 100 WBC 0 /100 WBCS (0.0-0.0); Neutrophils % (A) 65.4 %; Platelet Count 284 X 10*3/uL (140-440); RBC 2.82 X 10*6/uL (4.10-5.20); RDW 14.4 % (11.5-14.5); WBC 9.93 X 10*3/uL (4.50-10.00)
[2022-08-11 11:53] LABS: African American GFR (CKD) 67.3 (60.0-200.0); Albumin 2.9 g/dL (3.8-4.9); Albumin/Globulin Ratio 1.24 (1.60-3.17); Anion Gap 8.5 mmol/L (10.00-18.00); BUN/Creat Ratio 9.73 Ratio (12.00-20.00); Blood Urea Nitrogen 10.7 mg/dL (9.0-27.0); C Reactive Protein 22.8 mg/dL (0.00-0.80); Carbon Dioxide 27.6 mmol/L (20.0-27.5); Globulin 2.4 g/dL (1.6-3.3); Non-African American GFR(CKD) 58.1 (60.0-200.0); Total Protein 5.3 g/dL (6.2-8.2)
--- NOTE | 2022-08-11 12:13 | P.PN ---
Progress Note - Text Progress Note Date: 08/11/22 Patient states she still feels weak. On exam vital signs are stable. Abdomen soft. Incision sites are clean dry intact. VISHNU drain has prostate 30 mL of serosanguineous fluid within it. There is no bile evidence of a VISHNU drain. There is status post severe cholecystitis with acute gangrenous cholecystitis and liver abscess. Patient to receive IV antibiotics. We discussed the discharge home tomorrow.
--- NOTE | 2022-08-11 15:55 | P.PN ---
Subjective Progress Note Date: 08/11/22 Principal diagnosis: Empyema of the gallbladder and liver abscess Patient is a 52 year female with a past medical history significant for asthma reflux hyperthyroidism presenting to the hospital yesterday for evaluation of abdominal pain mostly to the right upper quadrant area, patient been diagnosed with empyema of the gallbladder and liver abscess status post laparoscopic cholecystectomy and drainage of the liver abscess. On today's evaluation that is 08/11/2022, the patient denies having any fever or any chills, the patient is breathing comfortably on May the patient right upper quadrant abdominal pain is slightly decreased, but no vomiting and no diarrhea no chest pain shortness of breath or cough Objective - Vital Signs Vital signs: Vital Signs Temp 98.0 F 08/11/22 07:00 Pulse 73 08/11/22 07:00 Resp 16 08/11/22 07:00 BP 109/73 08/11/22 07:00 Pulse Ox 95 08/11/22 08:44 FiO2 Intake & Output 08/10/22 08/11/22 08/11/22 18:59 06:59 18:59 Intake Total 360 Output Total 30 Balance 360 -30 Intake: Oral 360 Output: Drainage 30 Right Lateral Abdomen 30 Other: Voiding Method Toilet Toilet # Voids 2 2 - Exam GENERAL DESCRIPTION: Middle-age female up in the room in no distress RESPIRATORY SYSTEM: Unlabored breathing , decreased breath sounds at bases HEART: S1 S2 regular rate and rhythm , ABDOMEN: Soft , no tenderness EXTREMITIES: No edema feet - Labs CBC & Chem 7: 08/11/22 06:08 08/11/22 06:08 Labs: Abnormal Lab Results - Last 24 Hours (Table) 08/11/22 08/11/22 Range/Units 06:08 06:08 RBC 2.82 L (4.10-5.20) X 10*6/uL Hgb 8.1 L (12.0-15.0) g/dL Hct 26.1 L (37.2-46.3) % MCHC 31.0 L (32.0-37.0) g/dL Carbon Dioxide 27.6 H (20.0-27.5) mmol/L Anion Gap 8.50 L (10.00-18.00) mmol/L Est GFR (CKD-EPI)NonAf 58.1 L (60.0-200.0) BUN/Creatinine Ratio 9.73 L (12.00-20.00) Ratio Calcium 8.0 L (8.7-10.3) mg/dL C-Reactive Protein 22.80 H (0.00-0.80) mg/dL Total Protein 5.3 L (6.2-8.2) g/dL Albumin 2.9 L (3.8-4.9) g/dL Albumin/Globulin Ratio 1.24 L (1.60-3.17) g/dL Assessment and Plan (1) Liver abscess Current Visit: Yes Status: Acute Code(s): K75.0 - ABSCESS OF LIVER SNOMED Code(s): 41089623 (2) Acute cholecystitis Current Visit: Yes Status: Acute Code(s): K81.0 - ACUTE CHOLECYSTITIS SNOMED Code(s): 01984845 Plan: 1patient presented to hospital with acute right upper quadrant pain in this patient has been diagnosed with gangrenous cholecystitis/empyema of the gallbladder as well as liver abscess in this patient who is status post laparoscopic cholecystectomy and drainage of the liver abscess , will need to cover for enteric gram-negative both aerobes and anaerobes to the likely pathogen 2 patient seemed to showing clinical improvement and will continue with the Zosyn 3.375 g every 8 hours Time with Patient: Less than 30
--- NOTE | 2022-08-11 17:52 | PN ---
PROGRESS NOTE DATE OF SERVICE: 08/10/2022 SUBJECTIVE: This is a 52-year-old woman, who was admitted after laparoscopic cholecystectomy for gangrenous cholecystitis. She is being closely monitored. The patient is on broad- spectrum IV antibiotics. No chest pain. No palpitations. No fever. OBJECTIVE: VITAL SIGNS: Pulse is 87, blood pressure 118/65, respirations 18. CHEST: Clear to auscultation. CARDIOVASCULAR: S1 and S2. ABDOMEN: Soft. Status post surgery. LABORATORY DATA: WBC 13.7. The rest of the labs are noted. ASSESSMENT: 1. Status post laparoscopic cholecystectomy for gangrenous cholecystitis. 2. Increased white blood cell count. 3. History of asthma. 4. Postoperative pain. 5. History of gastroesophageal reflux disease. RECOMMENDATIONS: Recommend to continue current medications and symptomatic treatment. Otherwise, broad- spectrum IV antibiotics. Repeat labs. Symptomatic treatment of the pain. Further recommendations to follow. MMODL / IJN: [id number] /
--- NOTE | 2022-08-12 00:48 | PN ---
PROGRESS NOTE DATE OF SERVICE: 08/11/2022 HISTORY OF PRESENT ILLNESS: This is a 52-year-old woman who was admitted after laparoscopic cholecystectomy and drainage of the liver abscess, is being closely monitored. The patient had gangrenous cholecystitis. The patient is on broad-spectrum IV antibiotics. Cultures are pending at this time. No chest pain. No palpitation. PHYSICAL EXAMINATION: VITAL SIGNS: Pulse 73, blood pressure NTD respirations 16. HEENT: Conjunctivae normal. NECK: N ABDOMEN: Soft, status post surgery. LEGS: No edema. NERVOUS SYSTEM: No focal deficits. LABS: WBC 9.93, hemoglobin 8.1. Otherwise, other labs are noted. ASSESSMENT: 1. Status post laparoscopic cholecystectomy for gangrenous cholecystitis, status post drainage of liver abscess. 2. Increased WBC. 3. History of asthma. 4. History of gastroesophageal reflux disease. RECOMMENDATIONS: This is a 52-year-old woman who presented with multiple complex medical issues, we will monitor the patient closely. We will continue the current medications, broad- spectrum IV antibiotics. Otherwise, VISHNU drain is still in present. Infectious Disease evaluation. Closely follow with surgery. Further recommendations to follow. Prognosis guarded. MMODL / IJN: [id number] / LIZA
[2022-08-12] MEDS: PIPERACILLIN-TAZOBACTAM 3.375 GM in SODIUM CHLORIDE 0.9% 100 ML IVPB SCH ×2 (01:04→09:36)
[2022-08-12] MEDS: LEVOTHYROXINE 88 MCG TAB PO SCH (06:46)
[2022-08-12 09:21] VITALS: BP 122/77; PULSE 79; RESP 18; TEMP 98
[2022-08-12 09:27] LABS: African American GFR (CKD) 75.5 (60.0-200.0); Albumin 3.2 g/dL (3.8-4.9); Albumin/Globulin Ratio 1.19 (1.60-3.17); Anion Gap 11.6 mmol/L (10.00-18.00); BUN/Creat Ratio 7.9 Ratio (12.00-20.00); Basophils # (A) 0.04 X 10*3/uL (0.00-0.10); Basophils % (A) 0.4 %; Blood Urea Nitrogen 7.9 mg/dL (9.0-27.0); Calcium 8.2 mg/dL (8.7-10.3); Carbon Dioxide 27.4 mmol/L (20.0-27.5); Eosinophils # (A) 0.23 X 10*3/uL (0.04-0.35); Eosinophils % (A) 2.4 %; Globulin 2.7 g/dL (1.6-3.3); HCT 28.3 % (37.2-46.3); Immature Grans, Automated 0.3 %; Lymphocytes # (A) 3.48 X 10*3/uL (0.90-5.00); Lymphocytes % (A) 36.7 %; MCH 29.3 pg (27.0-32.0); MCHC 31.8 g/dL (32.0-37.0); MCV 92.2 fL (80.0-97.0); Mean Platelet Volume 9.5 fL (9.5-12.2); Monocytes % (A) 8.4 %; NRBC Per 100 WBC 0 /100 WBCS (0.0-0.0); Neutrophils # (A) 4.91 X 10*3/uL (1.80-7.70); Neutrophils % (A) 51.8 %; Non-African American GFR(CKD) 65.2 (60.0-200.0); Platelet Count 347 X 10*3/uL (140-440); Potassium 3.8 mmol/L (3.5-5.5); RBC 3.07 X 10*6/uL (4.10-5.20); RDW 14.5 % (11.5-14.5); Total Protein 5.9 g/dL (6.2-8.2); WBC 9.49 X 10*3/uL (4.50-10.00)
[2022-08-12] MEDS: ENOXAPARIN 40 MG/0.4 ML SYRINGE SQ SCH (09:36)
[2022-08-12] MEDS: PANTOPRAZOLE 40 MG/10 ML VIAL IVP SCH (09:36)
--- NOTE | 2022-08-12 12:33 | P.DS ---
Providers Date of admission: 08/09/22 01:35 Expected date of discharge: 08/12/22 Attending physician: Samir Renee Consults: 08/09/22 12:35 Consult Physician Routine Consulting Provider: Sabiha Napier Consult Reason/Comments: Medical management Do you want consulting provider notified?: Yes 08/10/22 12:57 Consult Physician Routine Consulting Provider: Antonio Aguillon Consult Reason/Comments: Liver abscess, cholecystitis Do you want consulting provider notified?: Yes Primary care physician: Marion Haley Hospital Course: This is a 52-year-old female who presents emergently complaints of right upper quadrant pain. Patient's found have evidence of severe acute cholecystitis with gallbladder and liver abscess. Patient underwent laparoscopically cholecystectomy. Patient did well postoperatively. Procedures: Laparoscopic cholecystectomy Patient Condition at Discharge: Good Plan - Discharge Summary New Discharge Prescriptions: No Action Levothyroxine Sodium [Synthroid] 88 mcg PO QAM Omeprazole [PriLOSEC] 40 mg PO HS Ibuprofen [Motrin] 400 mg PO DAILY PRN PRN Reason: Pain Or Fever > 100.5 Discharge Medication List Levothyroxine Sodium [Synthroid] 88 mcg PO QAM 08/07/16 [History] Omeprazole [PriLOSEC] 40 mg PO HS 02/25/22 [History] Ibuprofen [Motrin] 400 mg PO DAILY PRN 08/09/22 [History] Follow up Appointment(s)/Referral(s): Samir Renee MD [STAFF PHYSICIAN] - 1 Week Marion Haley DO [Primary Care Provider] - 1 Week Activity/Diet/Wound Care/Special Instructions: Dr. Aguillon to provide discharge antibiotic prescription Discharge Disposition: HOME SELF-CARE
--- NOTE | 2022-08-12 13:35 | P.PN ---
Subjective Progress Note Date: 08/12/22 Principal diagnosis: Empyema of the gallbladder and liver abscess Patient is a 52 year female with a past medical history significant for asthma reflux hyperthyroidism presenting to the hospital yesterday for evaluation of abdominal pain mostly to the right upper quadrant area, patient been diagnosed with empyema of the gallbladder and liver abscess status post laparoscopic cholecystectomy and drainage of the liver abscess. On today's evaluation that is 08/12/2022, the patient remains to be febrile, the patient is breathing comfortably on room air, the patient right upper quadrant abdominal pain has decreased in intensity, some nausea but no vomiting and no diarrhea no chest pain shortness of breath or cough Objective - Vital Signs Vital signs: Vital Signs Temp 98.0 F 08/12/22 07:00 Pulse 79 08/12/22 07:00 Resp 18 08/12/22 07:00 BP 122/77 08/12/22 07:00 Pulse Ox 93 L 08/12/22 07:00 FiO2 Intake & Output 08/11/22 08/12/22 08/12/22 18:59 06:59 18:59 Intake Total 922 Output Total 33 40 Balance 889 -40 Intake: Intake, IV Titration 700 Amount Piperacillin-Tazobactam 3 100 .375 gm In Sodium Chloride 0.9% 100 ml @ 25 mls/hr IVPB Q8HR [facility] Rx# :[id number] Sodium Chloride 0.9% 1, 600 000 ml @ 50 mls/hr IV . Q20H [facility] Rx#:[id number] Oral 222 Output: Drainage 33 40 Right Lateral Abdomen 33 40 Other: Voiding Method Toilet # Voids 2 - Exam GENERAL DESCRIPTION: Middle-age female up in the room in no distress RESPIRATORY SYSTEM: Unlabored breathing , decreased breath sounds at bases HEART: S1 S2 regular rate and rhythm , ABDOMEN: Soft , no tenderness EXTREMITIES: No edema feet - Labs CBC & Chem 7: 08/12/22 04:23 08/12/22 04:23 Labs: Abnormal Lab Results - Last 24 Hours (Table) 08/12/22 08/12/22 Range/Units 04:23 04:23 RBC 3.07 L (4.10-5.20) X 10*6/uL Hgb 9.0 L (12.0-15.0) g/dL Hct 28.3 L (37.2-46.3) % MCHC 31.8 L (32.0-37.0) g/dL BUN 7.9 L (9.0-27.0) mg/dL BUN/Creatinine Ratio 7.90 L (12.00-20.00) Ratio Calcium 8.2 L (8.7-10.3) mg/dL Total Protein 5.9 L (6.2-8.2) g/dL Albumin 3.2 L (3.8-4.9) g/dL Albumin/Globulin Ratio 1.19 L (1.60-3.17) g/dL Assessment and Plan (1) Liver abscess Current Visit: Yes Status: Acute Code(s): K75.0 - ABSCESS OF LIVER SNOMED Code(s): 96189974 (2) Acute cholecystitis Current Visit: Yes Status: Acute Code(s): K81.0 - ACUTE CHOLECYSTITIS SNOMED Code(s): 77708562 Plan: 1patient presented to hospital with acute right upper quadrant pain in this patient has been diagnosed with gangrenous cholecystitis/empyema of the gallbladder as well as liver abscess in this patient who is status post laparoscopic cholecystectomy and drainage of the liver abscess , will need to cover for enteric gram-negative both aerobes and anaerobes to the likely pathogen 2 patient has shown clinical improvement with the Zosyn 3.375 g every 8 hours, will finish therapy with oral Augmentin prescription sent to the pharmacy and close outpatient follow-up Time with Patient: Less than 30
--- NOTE | 2022-08-13 01:07 | PN ---
PROGRESS NOTE DATE OF SERVICE: 08/12/2022 HISTORY OF PRESENT ILLNESS: This is a 52-year-old woman was admitted for gangrenous cholecystitis laparoscopic cholecystectomy. Patient liver abscess, which was drained also. VISHNU drain is noted draining some serosanguineous fluid. No chest pain. No palpitation. Cultures are negative so far. PHYSICAL EXAMINATION: VITAL SIGNS: Pulse is 82, blood pressure 150/70, and respirations 16. CHEST: Clear to auscultation. CARDIOVASCULAR: S1 and S2. ABDOMEN: Soft. Mild diffuse, possibly tenderness. NERVOUS SYSTEM: Nonfocal. LABORATORY DATA: WBC 9.49. The rest of the labs are noted. ASSESSMENT: 1. Status post laparoscopic cholecystectomy for gangrenous cholecystitis and status post drainage of liver abscess. 2. Increased white blood cell count. 3. History of asthma. 4. History of gastroesophageal reflux disease. RECOMMENDATIONS: Recommend to continue current medications and symptomatic treatment. Otherwise, closely monitor. The prognosis is guarded. Continue with the antibiotics. Further recommendations to follow. MMODL / IJN: [id number] / LIZA
== END 2022-08-12 14:35 | disposition home or self-care (01) ==
LOC: EC 23:54 → 6NMEDSUR 08-09 01:35
PROVIDERS: ADMIT Surgery; ATTEND Surgery
DX: K80.12 Calculus of gallbladder with acute and chronic cholecystitis without obstruction (principal); K82.A1 Gangrene of gallbladder in cholecystitis; K75.0 Abscess of liver; E05.90 Thyrotoxicosis, unspecified without thyrotoxic crisis or storm; K21.9 Gastro-esophageal reflux disease without esophagitis; J45.909 Unspecified asthma, uncomplicated; Z79.890 Hormone replacement therapy; Z79.899 Other long term (current) drug therapy
CPT/HCPCS: 96361; 96365; 96366; 96375; 99285; 36415; 94760 ×2; 81025; 88304; 80053 ×4; 82150; 83690; 85025 ×4; 85610; 85730; 86140; 76705; 47562; G0378 ×5; J2543 ×4; J2250; J0330; J2270; J1644; J1100; J2710; J2405; J1650 ×3; J3010; J1170 ×4; J0295; J1885; J2704; C9113 ×4; J2001

== ENCOUNTER → 2023-03-28 | Outpatient (CLI) | payer BC ==
[2023-03-28 16:04] LABS: ALT 6 U/L (8-44); AST 18 U/L (13-35); Chol/HDL Ratio 3.96 Ratio
== END | disposition home or self-care (01) ==
LOC: LABWHC1 09:07
PROVIDERS: ATTEND Internal Medicine Cardiovascular Disease
DX: E78.2 Mixed hyperlipidemia (principal)
CPT/HCPCS: 36415; 80061; 84450; 84460

== ENCOUNTER → 2023-04-03 | Outpatient (CLI) | payer BC ==
--- NOTE | 2023-04-03 10:53 | FL ---
EXAMINATION TYPE: FL barium swallow DATE OF EXAM: 04/03/2023 10:33 AM COMPARISON: None CLINICAL INDICATION:Female, 52 years old with history of K44.9 DIAPHRAGMATIC HERNIA; TECHNIQUE: The procedure was explained and patient history elicited. All patient questions were ans wered prior to start of procedure. Multiple spot fluoroscopic images of the esophagus were obtained a fter the oral ingestion of effervescent crystals and liquid barium as the contrast agent. Fluoroscopic time: 39 seconds Fluoroscopic images: 0 Radiographs taken: 44 DAP: 1430 mGym2 FINDINGS: The esophagus demonstrates normal primary and secondary peristalsis. The esophageal mucosa is smooth without evidence of focal stricture, ulceration, or abnormal outpouching. Mild gastroesophageal refl ux when patient was lying IMPRESSION: 1. Normal esophagram. 2. No evidence for hiatal hernia. 3. Gastroesophageal reflux.
== END | disposition home or self-care (01) ==
LOC: RADUSWWP 08:47
PROVIDERS: ATTEND Surgery Plastic and Reconstructive Surgery
DX: K21.9 Gastro-esophageal reflux disease without esophagitis (principal); K44.9 Diaphragmatic hernia without obstruction or gangrene
CPT/HCPCS: 74220

== ENCOUNTER → 2023-04-30 | Outpatient (CLI) | payer BC ==
--- NOTE | 2023-04-30 10:31 | CT ---
EXAMINATION TYPE: CT chest wo con CT DLP: 456.8 mGycm, Automated exposure control for dose reduction was used. DATE OF EXAM: 04/30/2023 9:16 AM COMPARISON: None CLINICAL INDICATION:Female, 52 years old with history of R22.2 LOCALIZED SWELLING, MASS AND LUMP, KALI NK; PHH, Severe acid reflux per patient. TECHNIQUE: Multiple axial images were obtained through the chest. Sagittal and coronal reformats were created for review. Contrast used: mL of (None if empty) Oral contrast used: (None if empty) FINDINGS: LUNGS/ PLEURA: No focal consolidation, pneumothorax or pleural effusion. AIRWAY: Patent and unremarkable. HEART: Size within normal limits. MEDIASTINUM: No gross evidence of adenopathy. Small hiatal hernia. VASCULATURE: No aortic aneurysm. MUSCULOSKELETAL: No acute osseous abnormalities SOFT TISSUES/LYMPH NODES: Unremarkable. LOWER NECK: No significant findings. UPPER ABDOMEN: Suspected dropped gallstone medial and inferior to the liver. The gallbladder surgical ly absent. IMPRESSION: 1. No evidence for acute thoracic process. The esophagus appears within normal limits for thickness. 2. Small hiatal hernia. 3. Trapped gallstone inferior and lateral to liver.
== END | disposition home or self-care (01) ==
LOC: RADCTMAIN 08:54
PROVIDERS: ATTEND Surgery Plastic and Reconstructive Surgery
DX: K21.9 Gastro-esophageal reflux disease without esophagitis (principal); K44.9 Diaphragmatic hernia without obstruction or gangrene; R22.2 Localized swelling, mass and lump, trunk
CPT/HCPCS: 71250

== ENCOUNTER 2023-07-31 13:51 | Observation (INO) | payer BC ==
[2023-07-28 11:02] VITALS: BMI 36.8
--- NOTE | 2023-07-31 07:03 | P.GSHP ---
History of Present Illness H&P Date: 07/31/23 CHIEF COMPLAINT: Paraesophageal hiatal hernia with gastroesophageal reflux disease. HISTORY OF PRESENT ILLNESS: The patient is a 53-year-old female who presents with symptomatic paraesophageal hiatal hernia over one year with gastroesophageal reflux disease. She has completed upper endoscopy workup. Now she presents for surgical intervention. PAST MEDICAL HISTORY: Please see list. PAST SURGICAL HISTORY: Please see list. MEDICATIONS: Please see list. ALLERGIES: Please see list. SOCIAL HISTORY: No illicit drug use FAMILY HISTORY: No reports of Crohn disease or ulcerative colitis. REVIEW OF ORGAN SYSTEMS: CONSTITUTIONAL: No reports of fevers or chills. GI: Denies any blood in stools or constipation. PHYSICAL EXAM: VITAL SIGNS: Stable GENERAL: Well-developed pleasant and in no acute distress. HEENT: No scleral icterus. Extraocular movements grossly intact. Moist buccal mucosa. NECK: Supple without lymphadenopathy. CHEST: Unlabored respirations. Equal bilateral excursions. CARDIOVASCULAR: Regular rate and rhythm. Distal 2+ pulses. ABDOMEN: Soft, nondistended. No peritoneal signs. MUSCULOSKELETAL: No clubbing, cyanosis, or edema. SKIN: Well-perfused. Good skin turgor. REPORTS: Upper endoscopy demonstrates paraesophageal hiatal hernia from outside institution. STUDIES: CT chest independently reviewed demonstrates incarcerated hiatal hernial. This is my independent interpretation. Barium swallow independently reviewed demonstrates hiatal hernia. ASSESSMENT: 1. Diaphragmatic paraesophageal hiatal hernia with severe gastroesophageal reflux disease. PLAN: 1. Recommend proceeding with a robotic paraesophageal hiatal hernia with possible mesh. 2. Benefits and risks of surgical intervention was discussed including possibility of open technique. 3. Inpatient hospitalization recommended of 2 nights 4. DVT prophylaxis. 5. Antibiotic prophylaxis. 6. She has also completed a very low caloric high-protein diet to address underlying hepatomegaly. 7. Non narcotic pain management including abdominal wall block described 8. Blood sugar glucose described. 9. Weight loss management described. 10. Recommend EKG Past Medical History Past Medical History: Asthma, GERD/Reflux, Skin Disorder, Thyroid Disorder Additional Past Medical History / Comment(s): Rosacea History of Any Multi-Drug Resistant Organisms: None Reported Past Surgical History: Cholecystectomy, Orthopedic Surgery Additional Past Surgical History / Comment(s): Right hand procedure Past Anesthesia/Blood Transfusion Reactions: No Reported Reaction Additional Past Anesthesia/Blood Transfusion Reaction / Comment(s): No hx blood transfusion. Past Psychological History: No Psychological Hx Reported Smoking Status: Never smoker Past Alcohol Use History: None Reported Past Drug Use History: None Reported - Past Family History Mother Family Medical History: No Reported History Father Family Medical History: Hypertension Medications and Allergies Home Medications Medication Instructions Recorded Confirmed Type Levothyroxine Sodium [Synthroid] 88 mcg PO QAM 08/07/16 07/28/23 History Omeprazole [PriLOSEC] 40 mg PO HS 02/25/22 07/28/23 History Allergies Allergy/AdvReac Type Severity Reaction Status Date / Time aloe Allergy Rash/Hives Verified 07/28/23 10:34
[~2023-07-31 13:51] MED LIST changes: +ACETAMINOPHEN TAB 500 MG TAB PO PRN; +CHLORHEXIDINE GLUCONATE 15 ML CUP MUCOUS MEM PRN; +DEXAMETHASONE SOD PHOSPHATE 4 MG/ML 1 ML VIAL IV ONE; +HEPARIN SODIUM,PORCINE 5,000 UNIT/ML 1 ML VIAL SQ PRN; +HEPARIN SODIUM,PORCINE/PF 5,000 UNIT/0.5 ML SYRINGE SQ PRN; -LACTATED RINGERS 1,000 ML IV SCH; +LIDOCAINE 1% (10MG/ML) FOR IV START INTRADERMA PRN; +ONDANSETRON 4 MG/2 ML VIAL IVP PRN; +PANTOPRAZOLE 40 MG/10 ML VIAL IVP PRN; +SCOPOLAMINE 1 MG/72 HR PATCH TRANSDERM STA; +droPERidol 5 MG/2 ML VIAL IVP ONE
[2023-07-31] MEDS: LACTATED RINGERS 1,000 ML IV SCH (14:42)
[2023-07-31 14:50] LABS: Basophils % (A) 1 %; Eosinophils # (A) 0.1 k/uL (0-0.7); Eosinophils % (A) 1 %; HCT 37.8 % (34.0-46.0); HGB 12.7 gm/dL (11.4-16.0); Lymphocytes # (A) 2.3 k/uL (1.0-4.8); Lymphocytes % (A) 32 %; MCH 29.7 pg (25.0-35.0); MCHC 33.5 g/dL (31.0-37.0); MCV 88.8 fL (80.0-100.0); Mean Platelet Volume 7.3; Monocytes # (A) 0.4 k/uL (0-1.0); Monocytes % (A) 6 %; Neutrophils # (A) 4.1 k/uL (1.3-7.7); Neutrophils % (A) 58 %; Platelet Count 281 k/uL (150-450); RBC 4.25 m/uL (3.80-5.40); RDW 14.7 % (11.5-15.5)
[2023-07-31 15:32] LABS: ALT 15 U/L (4-34); AST 32 U/L (14-36); African American GFR (CKD) >90 (>60 ml/min/1.73 sqM); Albumin 4.5 g/dL (3.5-5.0); Alkaline Phosphatase 112 U/L (38-126); Anion Gap 16 mmol/L; Blood Urea Nitrogen 20 mg/dL (7-17); Calcium 9.4 mg/dL (8.4-10.2); Carbon Dioxide 25 mmol/L (22-30); Chloride 100 mmol/L (98-107); Glucose 85 mg/dL (74-99); Non-African American GFR(CKD) 79 (>60 ml/min/1.73 sqM); Sodium 141 mmol/L (137-145); Total Protein 8.2 g/dL (6.3-8.2)
[2023-07-31] MEDS ORDERED: ePHEDrine 50 MG/ML 1 ML VIAL ONE (15:53)
[2023-07-31] MEDS ORDERED: GLYCOPYRROLATE 0.2 MG/ML 2 ML VIAL ONE (15:53)
[2023-07-31] MEDS ORDERED: NEOSTIGMINE 1 MG/ML 10 ML VIAL ONE (15:53)
[2023-07-31] MEDS ORDERED: fentaNYL (PF) 50 MCG/ML 2 ML AMP ONE (15:53)
[2023-07-31] MEDS ORDERED: PHENYLEPHRINE-0.9% NACL SYG 1,000 MCG/10 ML SYRINGE ONE (15:53)
[2023-07-31] MEDS ORDERED: MIDAZOLAM 2 MG/2 ML VIAL ONE (15:53)
[2023-07-31] MEDS ORDERED: PROPOFOL 10 MG/ML 20 ML VIAL IV ONE (15:53)
[2023-07-31] MEDS ORDERED: ROCURONIUM 10 MG/ML (5 ML VIAL) IV ONE (15:53)
[2023-07-31] MEDS ORDERED: LIDOCAINE 1% INJ 10MG/ML (20 ML MDV) ONE (15:53)
[2023-07-31] MEDS ORDERED: SUCCINYLCHOLINE CHLORIDE 200 MG/10 ML VIAL IV ONE (15:53)
[2023-07-31] MEDS ORDERED: LIDOCAINE 4% LTA KIT (4 ML) TOPICAL ONE (15:53)
[2023-07-31] MEDS ORDERED: ONDANSETRON 4 MG/2 ML VIAL ONE (15:53)
[2023-07-31] MEDS ORDERED: LIDOCAINE 1%-EPI 1:100,000 50 ML VIAL SQ ONE (16:41)
[2023-07-31] MEDS: HYDROmorphone 0.5 MG/0.5 ML SYRINGE IVP PRN ×2 (18:31→18:45)
[2023-07-31] MEDS ORDERED: HYDROmorphone 1 MG/ML 1 ML SYRINGE IVP PRN (18:47)
--- NOTE | 2023-07-31 18:53 | P.OP ---
Date of Procedure: 07/31/23 Description of Procedure: SURGEON: SONIA LIGHT MD PREOPERATIVE DIAGNOSES: 1. Diaphragmatic hiatal hernia 2. Gastroesophageal reflux disease with erosive esophagitis 3. Morbid obesity due to excess calories, BMI 36.8 4. Hypothyroidism POSTOPERATIVE DIAGNOSES: 1. Midline paraesophageal diaphragmatic hiatal hernia, 4 cm, with incarceration 2. Gastroesophageal reflux disease with erosive esophagitis 3. Morbid obesity due to excess calories, BMI 36.8 4. Hypothyroidism OPERATION: 1. Robotic-assisted da Dave Xi laparoscopic reduction and repair of incarcerated paraesophageal hiatal hernia 4 x 4 cm without mesh 2. Intraoperative esophagogastroduodenoscopy 3. Placement of 56-Hungarian bougie for esophageal strictures ANESTHESIA: General with local anesthetic. ESTIMATED BLOOD LOSS: 5 mL SPECIMENS REMOVED: None COMPLICATIONS: None. FINDINGS: 1. Hiatal defect 4 x 4 cm 2. Hill grade 1 lower esophageal valve after completion of procedure for type III paraesophageal hiatal hernia INDICATIONS: The patient is a 53-year-old female who presents with epigastric abdominal pain, gastroesophageal reflux disease poorly controlled despite medications, reflux and a symptomatic diaphragmatic hiatal hernia. She completed barium swallow on CT chest. Given the severity of her symptoms, particularly of her symptomatic diaphragmatic hiatal hernia, she had elected for surgical intervention. Benefits and risks including bleeding, infection, recurrence, dysphagia, injury to the lung, need for further surgery was described at length. Informed consent was obtained. DESCRIPTION: The patient was brought into the operating room and placed in supine position. Preoperatively she had received subcutaneous DVT prophylaxis. After general induction, the abdomen was prepped and draped in standard sterile fashion. The patient had previously voided prior to coming to the operating room. Ioban draping was placed along the abdomen. A timeout protocol was confirmed with the surgical team, for which the patient's name, procedure to be performed including DVT prophylaxis with bilateral SCDs, and preoperative antibiotics were also confirmed. A robotic da Dave Xi system was prepped and primed. At 12 cm from the xiphoid to just below the umbilicus, proposed port sites were marked with indelible marker along the left axillary line, left mid-clavicular line with each ports were marked 10 cm from each other. A 5 mm 0 degrees laparoscopic trocar entry was performed along the left upper quadrant. The abdomen was insufflated to 15 mmHg pressure she tolerated well. Diagnostic laparoscopy demonstrated no injury to bowel, viscera, or mesentery. The liver surface was unremarkable. No injury had occurred to the small bowel or viscera. Next, one 8 mm robotic port was placed along the right upper abdomen. An 8-mm port was were placed along the left mid abdomen. The camera 12-mm port extended length was maintained along the epigastrium via the hernia defect. Another 8 mm port was placed along the left upper abdominal wall after exchanging the 5 mm port. Please note that the ports were placed at least 20 cm away from the target anatomy. Care was taken to check that each robotic arm were safely away from collision with the bed or the patient. At the epigastrium, a medium sized Angie liver retractor was placed under direct visualization with the Iron Completions Engineer placed under the right shoulder of the patient. The patient was repositioned in reverse Trendelenburg position and 26 after lowering the bed. The robot was docked above the head of the patient. Using a grasper for arm 3, a grasper for arm 2, including hook cautery for arm 1, the robotic system was docked and primed as described. Instruments were interchanged by the bindery library technical assistant . I had sat at the console. The gastrohepatic ligament was cleaved using a vessel sealer. Next, the phrenoesophageal ligament was mobilized and the distal esophagus was mobilized circumferentially without injury to the bilateral vagi nerves. The left and right crura was identified. A midline hi atal hernia was found. Mobilization of the distal esophagus into the mediastinum was performed without injury to the vagus nerves. The measured defect was consistent with at least 4 cm axial length and 4 cm width. After extensive dissection, the distal esophagus of at least 2 cm was brought into the abdominal cavity. Once the hiatus and crura was dissected, 2-0 VLOC nonabsorbable suture was paul kate initially to reapproximate the diaphragmatic hiatus posteriorly. I went to the head of the bed to perform intraoperative esophagogastroduodenoscopy. An Olympus gastroscope was passed through posterior oropharynx, where the GE junction was found distal to the diaphragmatic hiatus. The intra-abdominal esophageal length obtained during the case was over 2 cm. The stomach was entered including duodenum. Retroflexion of the scope confirmed a Hill grade 1 lower esophageal valve. The squamocolumnar junction was at 36 cm. Diaphragmatic hiatus was at 36 cm. The stomach had been desufflated. No evidence of leaks were found either of the mucosal defects of the esophagus or stomach. To address history of upper including lower esophageal strictures, 56-Hungarian bougie was placed for 1 minute and withdrawn. This concluded the endoscopic portion of the case. The robot was undocked from the patient. I re-scrubbed into the case. All instruments and pneumoperitoneum were evacuated from the abdominal cavity. Incisions were reapproximated using 4-0 Monocryl in an interrupted subcuticular fashion. Liquid glue was applied to the skin. Local anesthetic was infiltrated in all wounds for postop analgesia. Multiple intra-abdominal films were obtained. At the end of the procedure, needle, sponge, and instrument count was verified correct by the surgical scheduler. The patient had tolerated the procedure well and was taken to the postanesthesia unit in stable condition. Intraoperative films were reviewed with the patient's family who was pleased with the level of care.
[2023-07-31] MEDS ORDERED: LACTATED RINGERS 1,000 ML IV ONE ×2 (18:55)
[2023-07-31] MEDS: ACETAMINOPHEN IV (For NPO) 1,000 MG in EMPTY BAG 1 BAG IVPB SCH ×2 (18:55→19:10)
[2023-07-31] MEDS: DEXAMETHASONE SOD PHOSPHATE 4 MG/ML 1 ML VIAL IVP SCH ×2 (21:59→23:46)
[2023-07-31] MEDS: SIMETHICONE 40 MG/0.6 ML DROPS 2,000 MG/30 ML BOTTLE PO SCH (22:00)
[2023-07-31] MEDS: D5-0.45% NACL WITH KCL 20MEQ/L 1,000 ML IV SCH (22:00)
[2023-08-01] MEDS: ACETAMINOPHEN IV (For NPO) 1,000 MG in EMPTY BAG 1 BAG IVPB SCH ×3 (00:20→13:35)
[2023-08-01] MEDS: ONDANSETRON 4 MG/2 ML VIAL IVP SCH ×3 (00:20→13:35)
[2023-08-01] MEDS: METOCLOPRAMIDE 5 MG/ML 2 ML VIAL IVP SCH ×3 (00:20→13:35)
[2023-08-01] MEDS: DEXAMETHASONE SOD PHOSPHATE 4 MG/ML 1 ML VIAL IVP SCH ×2 (05:28→13:35)
[2023-08-01] MEDS: D5-0.45% NACL WITH KCL 20MEQ/L 1,000 ML IV SCH ×2 (05:28→13:26)
[2023-08-01] MEDS ORDERED: LEVOTHYROXINE 88 MCG TAB PO SCH (06:30)
[2023-08-01] MEDS: LACTATED RINGERS 1,000 ML IV SCH (06:57)
[2023-08-01] MEDS: SIMETHICONE 40 MG/0.6 ML DROPS 2,000 MG/30 ML BOTTLE PO SCH ×2 (10:27→15:23)
[2023-08-01] MEDS: ENOXAPARIN 30 MG/0.3 ML SYRINGE SQ SCH ×2 (10:27→10:30)
--- NOTE | 2023-08-01 11:00 | FL ---
SINGLE CONTRAST ESOPHAGRAM: CLINICAL HISTORY: 53-year-old female status post hiatal hernia repair. Rule out leak/obstruction. TECHNIQUE: Single contrast exam performed with 40 mL Isovue-370 contrast. Total fluoroscopy time: 1 minute 10 seconds. Total images: 22. Total DAP: 10 mGycm2 FINDINGS: No postoperative free air is seen below the hemidiaphragms. Low lung volumes. Patient swallowed oral contrast with hesitancy. There is normal course and caliber of the thoracic esophagus. Multiple terti ailyn peristaltic waves are present. There is narrowing at the GE junction resulting in a relative mode rate delay in passage of contrast from the esophagus into the stomach. Episodes of intraesophageal re flux are seen due to the old contrast in the distal esophagus. Intermittent passage of a thin stream into the stomach shows no evidence for contrast extravasation. IMPRESSION: No evidence of leak status post hiatal hernia repair. However, there is narrowing at the GE junction contributing to a relative mild to moderate obstruction. Secondarily, there are episodes of intraesop hageal reflux of the contrast pooled in the distal esophagus. Probably on the basis of postoperative edema. Follow-up as clinically indicated.
[2023-08-01 13:34] VITALS: BP 120/74; PULSE 90; RESP 18; TEMP 98
--- NOTE | 2023-08-01 15:51 | P.DS ---
Providers Date of admission: 07/31/23 18:45 Expected date of discharge: 08/01/23 Attending physician: Radha Ingram Primary care physician: Marion Haley Hospital Course: Discharge diagnosis 1. Midline paraesophageal diaphragmatic hiatal hernia, 4 cm, with incarceration 2. Gastroesophageal reflux disease with erosive esophagitis 3. Morbid obesity due to excess calories, BMI 36.8 4. Hypothyroidism Hospital course The patient is a 53-year-old female who presents with epigastric abdominal pain, gastroesophageal reflux disease poorly controlled despite medications, reflux and a symptomatic diaphragmatic hiatal hernia. Patient is status post Robotic- assisted da Dave Xi laparoscopic reduction and repair of incarcerated paraesophageal hiatal hernia 4 x 4 cm without mesh and Placement of 56-Uzbek bougie for esophageal strictures. Upper GI shows no evidence of leak. There is narrowing at the GE junction contributing to relative mild to moderate obstruction. There are episodes of intraesophageal reflux of contrast pooled at the distal esophagus. Probably on the basis of postoperative edema. Results were reviewed with Dr. Ingram. Patient is tolerating diet. Her pain is controlled. She has been up and ambulating. She is afebrile. She is stable for discharge. Physician Food Writer note has been reviewed by physician. Signing provider agrees with the documented findings, assessment, and plan of care. Patient Condition at Discharge: Stable Plan - Discharge Summary Discharge Rx Participant: No New Discharge Prescriptions: New Ondansetron Odt [Zofran Odt] 4 mg PO Q8HR PRN #9 tab PRN Reason: Nausea bisacodyL [Dulcolax] 5 mg PO DAILY PRN #10 tab PRN Reason: Constipation Simethicone 40 mg/0.6 ml Drops [Mylicon Drops] 40 mg PO PCHS PRN #30 ml PRN Reason: Gas Acetaminophen Tab [Tylenol] 1,000 mg PO Q6HR PRN #30 tablet PRN Reason: Pain Continue Levothyroxine Sodium [Synthroid] 88 mcg PO QAM Discontinued Omeprazole [PriLOSEC] 40 mg PO HS Discharge Medication List Levothyroxine Sodium [Synthroid] 88 mcg PO QAM 08/07/16 [History] Acetaminophen Tab [Tylenol] 1,000 mg PO Q6HR PRN #30 tablet 08/01/23 [Rx] Ondansetron Odt [Zofran Odt] 4 mg PO Q8HR PRN #9 tab 08/01/23 [Rx] Simethicone 40 mg/0.6 ml Drops [Mylicon Drops] 40 mg PO PCHS PRN #30 ml 08/01/23 [Rx] bisacodyL [Dulcolax] 5 mg PO DAILY PRN #10 tab 08/01/23 [Rx] Follow up Appointment(s)/Referral(s): Radha Ingram MD [STAFF PHYSICIAN] - 08/05/23 Activity/Diet/Wound Care/Special Instructions: Liquid diet only for 2 weeks No lifting over 4 pounds in 4 weeks May shower No soaking in bath tubs for 2 weeks, Please notify your surgeon if you develop nausea and vomiting including new onset of abdominal pain. Please ambulate at all times. Use Simethicone, Gas-X, Tylenol scheduled for the next 24-48 hours for best pain relief. Use ice along incisions for the today to prevent swelling. Please open, cut, crush pills larger than the size of a tic tack No carbonated beverages. No straws. Do not remove scopolamine patch for 3 days, if present Avoiding Gas Avoid drinking through a straw. Do not chew gum or tobacco. These actions cause you to swallow air, which produces excess gas in your stomach. Chew with your mouth closed. Avoid any foods that cause stomach gas and distention. These foods include corn, dried beans, peas, lentils, onions, broccoli, cauliflower and any food from the cabbage family. Avoid carbonated drinks, alcohol, citrus and tomato products. Carbonated drinks (sodas) are not allowed for the first six to eight weeks after surgery. After this time you can try them again in small amounts Clear Liquid Diet The first diet after surgery is the clear liquid diet. It includes the following liquids: Apple juice Cranberry juice Grape juice Chicken broth Beef broth Flavored gelatin (Jell-O) Decaf tea and coffee Caffeinated beverages are permitted based on tolerance Popsicles Maori ice Full Liquid Diet The full liquid diet contains anything on the clear liquid diet, plus: Milk, soy, rice and almond (no chocolate) Cream of wheat, cream of rice, grits Strained creamed soups (no tomato or broccoli) Vanilla and strawberry-flavored ice cream Sherverat Blended, custard styled or whipped yogurt (plain or vanilla only) Vanilla and butterscotch pudding (no chocolate or coconut) Nutritional drinks including Ensure, Boost, [place] Instant Breakfast (no chocolate-flavored) Note: Dairy products, such as milk, ice cream and pudding, may cause diarrhea in some people just after surgery. You may need to avoid milk products. If so, substitute them with lactose-free beverages, such as soy, rice, Lactaid or almond milks. Discharge Disposition: HOME SELF-CARE
== END 2023-08-01 17:15 | disposition home or self-care (01) ==
LOC: OR 13:51 → 4SSUR 18:22 → OR 18:45 → 4SSUR 18:45
PROVIDERS: ADMIT Surgery Plastic and Reconstructive Surgery; ATTEND Surgery Plastic and Reconstructive Surgery
DX: K44.0 Diaphragmatic hernia with obstruction, without gangrene (principal); K21.00 Gastro-esophageal reflux disease with esophagitis, without bleeding; K22.2 Esophageal obstruction; E03.9 Hypothyroidism, unspecified; R16.0 Hepatomegaly, not elsewhere classified; J45.909 Unspecified asthma, uncomplicated; L71.9 Rosacea, unspecified; E66.01 Morbid (severe) obesity due to excess calories; Z68.36 Body mass index [BMI] 36.0-36.9, adult; Z79.890 Hormone replacement therapy; Z91.048 Other nonmedicinal substance allergy status; Z90.49 Acquired absence of other specified parts of digestive tract; Z98.890 Other specified postprocedural states; Z82.49 Family history of ischemic heart disease and other diseases of the circulatory system
CPT/HCPCS: 43281; S2900; 74210; 80053; 81025; 85025

== ENCOUNTER 2023-08-28 13:29 | Day surgery (SDC) | payer BC ==
[2023-08-21 10:15] VITALS: BMI 34.8
--- NOTE | 2023-08-28 12:12 | P.GSHP ---
History of Present Illness H&P Date: 08/28/23 CHIEF COMPLAINT: GERD HISTORY OF PRESENT ILLNESS: The patient is a 53-year-old female who presents reports gastroesophageal reflux disease. Upper endoscopy was offered for further evaluation and management. PAST MEDICAL HISTORY: Please see list. PAST SURGICAL HISTORY: Please see list. MEDICATIONS: Please see list. ALLERGIES: Please see list. SOCIAL HISTORY: No illicit drug use FAMILY HISTORY: No reports of Crohn disease or ulcerative colitis. REVIEW OF ORGAN SYSTEMS: CONSTITUTIONAL: No reports of fevers or chills. GI: Denies any blood in stools or constipation. PHYSICAL EXAM: VITAL SIGNS: Stable GENERAL: Well-developed and pleasant in no acute distress. HEENT: No scleral icterus. Extraocular movements grossly intact. Moist buccal mucosa. NECK: Supple without lymphadenopathy. CHEST: Unlabored respirations. Equal bilateral excursions. CARDIOVASCULAR: Regular rate and rhythm. Distal 2+ pulses. ABDOMEN: Soft, nondistended. MUSCULOSKELETAL: No clubbing, cyanosis, or edema. ASSESSMENT: 1. Gastroesophageal reflux disease PLAN: 1. Recommend proceeding with an upper endoscopy Past Medical History Past Medical History: Asthma, Skin Disorder, Thyroid Disorder Additional Past Medical History / Comment(s): Rosacea History of Any Multi-Drug Resistant Organisms: None Reported Past Surgical History: Cholecystectomy, Orthopedic Surgery Additional Past Surgical History / Comment(s): Right hand procedure cyst, hiatal hernia surgery Past Anesthesia/Blood Transfusion Reactions: No Reported Reaction Additional Past Anesthesia/Blood Transfusion Reaction / Comment(s): No hx blood transfusion. Smoking Status: Never smoker - Past Family History Mother Family Medical History: No Reported History Father Family Medical History: Hypertension Medications and Allergies Home Medications Medication Instructions Recorded Confirmed Type Levothyroxine Sodium [Synthroid] 88 mcg PO QAM 08/07/16 08/21/23 History Acetaminophen Tab [Tylenol] 1,000 mg PO Q6HR PRN #30 tablet 08/01/23 08/21/23 Rx Ondansetron Odt [Zofran Odt] 4 mg PO Q8HR PRN #9 tab 08/01/23 08/21/23 Rx Simethicone 40 mg/0.6 ml Drops 40 mg PO PCHS PRN #30 ml 08/01/23 08/21/23 Rx [Mylicon Drops] bisacodyL [Dulcolax] 5 mg PO DAILY PRN #10 tab 08/01/23 08/21/23 Rx Allergies Allergy/AdvReac Type Severity Reaction Status Date / Time aloe Allergy Rash/Hives Verified 08/21/23 09:47
[~2023-08-28 13:29] MED LIST changes: -ACETAMINOPHEN TAB 500 MG TAB PO PRN; -CHLORHEXIDINE GLUCONATE 15 ML CUP MUCOUS MEM PRN; -DEXAMETHASONE SOD PHOSPHATE 4 MG/ML 1 ML VIAL IV ONE; -HEPARIN SODIUM,PORCINE 5,000 UNIT/ML 1 ML VIAL SQ PRN; -HEPARIN SODIUM,PORCINE/PF 5,000 UNIT/0.5 ML SYRINGE SQ PRN; +LACTATED RINGERS 1,000 ML IV SCH; -ONDANSETRON 4 MG/2 ML VIAL IVP PRN; -PANTOPRAZOLE 40 MG/10 ML VIAL IVP PRN; -SCOPOLAMINE 1 MG/72 HR PATCH TRANSDERM STA; -droPERidol 5 MG/2 ML VIAL IVP ONE
[2023-08-28] MEDS ORDERED: MIDAZOLAM 2 MG/2 ML VIAL ONE (14:08)
[2023-08-28] MEDS ORDERED: LIDOCAINE 2% (PF) 20 MG/ML 5 ML VIAL ONE (14:08)
[2023-08-28] MEDS ORDERED: fentaNYL (PF) 50 MCG/ML 2 ML AMP ONE (14:08)
[2023-08-28] MEDS ORDERED: PROPOFOL 10 MG/ML 20 ML VIAL IV ONE (14:08)
[2023-08-28 14:22] VITALS: RESP 16; TEMP 97.4
--- NOTE | 2023-08-28 14:34 | P.PCN ---
Date of Procedure: 08/28/23 Description of Procedure: PREOPERATIVE DIAGNOSIS: Dysphagia. Gastroesophageal reflux disease Morbid obesity excess calories, BMI 35.6 Esophageal stricture POSTOPERATIVE DIAGNOSIS: Dysphagia. Gastroesophageal reflux disease Morbid obesity excess calories, BMI 35.6 Esophageal stricture Gastric polyps with bleeding OPERATION: Esophagogastroduodenoscopy with rigid dilator over the guidewire 57 Fr. SURGEON: Radha Ingram MD ANESTHESIA: MAC. INDICATIONS: The patient is a 53-year-old female who presents with dysphagia due to texture or solid foods. Benefits and risks of the procedure were described. Informed consent was obtained. DESCRIPTION: The patient was brought into the endoscopy suite and laid in the left lateral decubitus position. After a timeout was confirmed, the procedure was initiated. An Olympus gastroscope was passed and the stomach was entered. Mild gastritis was identified. The scope was advanced to the duodenum which was unremarkable. Retroflexion the scope confirmed a Hill grade 1 lower esophageal valve. Next using an Togolese rigid dilator, a guidewire was placed through the pediatric gastroscope. Next the scope was withdrawn. A 57-Iraqi rigid Togolese dilator was passed carefully along the posterior oropharynx to 50 cm and left in place for 2-3 minutes stretch. The dilator was withdrawn including the guidewire. The scope was reentered along the posterior oropharynx with no findings of full-thickness tear of the upper esophageal sphincter. Multiple gastric polyps with recent bleeding was identified. No full-thickness injury was encountered. The GI tract was desufflated. The patient tolerated the procedure well. FINDINGS: Squamocolumnar junction unremarkable at 38 cm. Distal esophageal stricture without ulceration Togolese rigid dilator 57-Iraqi completed. No recurrent hiatus hernia Acute gastric bleeding from gastric polyps, gastric cardia Hill grade 1 lower esophageal valve. LA grade A esophagitis. RECOMMENDATIONS: Upper endoscopy as needed Plan - Discharge Summary Discharge Rx Participant: No New Discharge Prescriptions: Continue Levothyroxine Sodium [Synthroid] 88 mcg PO QAM Ondansetron Odt [Zofran ODT] 4 mg PO Q8HR PRN #9 tab PRN Reason: Nausea bisacodyL [Dulcolax] 5 mg PO DAILY PRN #10 tab PRN Reason: Constipation Simethicone 40 mg/0.6 ml Drops [Mylicon Drops] 40 mg PO PCHS PRN #30 ml PRN Reason: Gas Acetaminophen Tab [Tylenol] 1,000 mg PO Q6HR PRN #30 tablet PRN Reason: Pain Discharge Medication List Levothyroxine Sodium [Synthroid] 88 mcg PO QAM 08/07/16 [History] Acetaminophen Tab [Tylenol] 1,000 mg PO Q6HR PRN #30 tablet 08/01/23 [Rx] Ondansetron Odt [Zofran ODT] 4 mg PO Q8HR PRN #9 tab 08/01/23 [Rx] Simethicone 40 mg/0.6 ml Drops [Mylicon Drops] 40 mg PO PCHS PRN #30 ml 08/01/23 [Rx] bisacodyL [Dulcolax] 5 mg PO DAILY PRN #10 tab 08/01/23 [Rx] Follow up Appointment(s)/Referral(s): Radha Ingram MD [STAFF PHYSICIAN] - 09/23/23 (TELEHEALTH) Patient Instructions/Handouts: Esophageal Dilation (GEN) Activity/Diet/Wound Care/Special Instructions: Ok for toast and scrambled eggs tomorrow Discharge Disposition: HOME SELF-CARE
[2023-08-28 15:18] VITALS: BP 110/73; PULSE 74
== END 2023-08-28 15:02 | disposition home or self-care (01) ==
LOC: ORWHC2ENDO 13:29
PROVIDERS: ATTEND Surgery Plastic and Reconstructive Surgery
DX: K22.2 Esophageal obstruction (principal); K31.7 Polyp of stomach and duodenum; K29.71 Gastritis, unspecified, with bleeding; K21.00 Gastro-esophageal reflux disease with esophagitis, without bleeding; E66.01 Morbid (severe) obesity due to excess calories; Z68.35 Body mass index [BMI] 35.0-35.9, adult; J45.909 Unspecified asthma, uncomplicated; Z79.890 Hormone replacement therapy; E03.9 Hypothyroidism, unspecified; Z91.09 Other allergy status, other than to drugs and biological substances; Z90.49 Acquired absence of other specified parts of digestive tract; Z87.19 Personal history of other diseases of the digestive system
CPT/HCPCS: 81025; 43248; J2250; J3010; J2704; J2001

== ENCOUNTER → 2024-06-09 | Outpatient (CLI) | payer BC ==
--- NOTE | 2024-06-11 08:32 | MM ---
Reason for Exam: Screening (asymptomatic). Last mammogram was performed 2 year(s) and 4 month(s) ago. Patient History: Menarche at age 14. First Full-Term at age 31. Late child-bearing (after 31). Hormonal Contraceptives for 7 years from age 21 until age 28. Last menstrual period: 06/08/2024 Risk Values: Jana 5 year model risk: 1.5%. NCI Lifetime model risk: 11.6%. Prior Study Comparison: 09/19/2016 Screening Mammogram, [facility]. 09/23/2018 Bilateral Screening Mammogram, [facility]. 01/23/2022 Bilateral MG 3D screening mammo w/cad, [facility]. Tissue Density: The breasts are heterogeneously dense, which may obscure small masses. Findings: Analyzed By CAD. There is no suspicious group of microcalcifications or new suspicious mass in either breast. Overall Assessment: Benign, BI-RAD 2 Management: Screening Mammogram of both breasts in 1 year. . Patient should continue monthly self-breast exams. A clinical breast exam by your physician is recommended on an annual basis. This exam should not preclude additional follow-up of suspicious palpable abnormalities. Note on Jana scores and lifetime risk: 1. A Jana score greater than 3% is considered moderate risk. If this is the case, consider specialist referral to assess eligibility for a risk reducing agent. 2. If overall lifetime risk for the development of breast cancer is 20% or higher, the patient may qualify for future screening with alternating mammogram and breast MRI. [facility], , 06/11/2024 8:29 AM. Electronically signed and approved by: Hany Ferguson M.D. Radiolog[facility]
== END | disposition home or self-care (01) ==
LOC: RADMAMWWP 12:10
PROVIDERS: ATTEND Family Medicine
CPT/HCPCS: 77063; 77067